=== PATIENT | male | born 1970 | race Caucasian/White ===

== ENCOUNTER 2024-07-29 19:57 | Emergency (ER) | payer BC ==
[2024-07-29 21:17] LABS: Absolute Basophils 0.1 K/uL (0-0.5); Absolute Eosinophils 0.1 K/uL (0-0.5); Absolute Lymphocytes (CBC) 1.5 K/uL (0.7-4.9); Absolute Monocytes 0.7 K/uL (0.1-1.3); Absolute Neutrophil 6.2 K/uL (1.8-8.0); Basophils % 0.8 % (0-1.3); Eosinophils % 0.6 % (0-4.4); Hematocrit 36.2 % (39.6-49.0); Hemoglobin 12.6 g/dL (13.6-17.9); Lymphocytes % 17.2 % (15.3-44.8); MCH 31.6 pg (27.0-35.0); MCHC 34.7 g/dL (32.0-36.0); MCV 91.2 fL (80-100); MPV 8.9 fL (7.6-11.3); Monocytes % 8.1 % (3.3-12.3); Neutrophils % 73.3 % (41.7-73.7); Platelets 263 thou/uL (152-406); RBC Red Blood Cell Count 3.97 M/uL (4.33-5.43); Red Cell Distribution Width 13.1 % (12.1-15.2)
[2024-07-29 21:33] LABS: Albumin 3.3 g/dL (3.4-5.0); Albumin/Globulin Ratio 0.9 (1.1-1.8); Alkaline Phosphatase 53 U/L (45-117); Anion Gap 8.3 mEq/L (5.0-15.0); BUN Blood Urea Nitrogen 14 mg/dL (7-18); Bicarbonate 27 mEq/L (21-32); Bilirubin Total 0.8 mg/dL (0.2-1.0); Globulin 3.7 g/dL (2.3-3.5); Glomerular Filtration Rate 64 ml/min (=/>90); Glucose Level 155 mg/dL (74-106); Lipase 46 U/L (13-75); Potassium 3.3 mEq/L (3.5-5.1); Sodium Level 136 mEq/L (136-145)
[2024-07-29] MEDS ORDERED: ONDANSETRON 4 MG/2 ML VIAL ONE (21:35)
[2024-07-29] MEDS ORDERED: MORPHINE 4 MG/ML SYR ONE (21:36)
[2024-07-29] MEDS ORDERED: NA CHLORIDE 0.9% 1,000 ML ONE (21:36)
[2024-07-29 21:47] LABS: Specific Gravity < 1.005 (1.005-1.030); Sqamous Epithelial None Seen /HPF (None Seen); Urine Bacteria None Seen /HPF (<20); Urine Bilirubin NEGATIVE (Negative); Urine Blood Negative (Negative); Urine Clarity Clear (Clear); Urine Color Colorless (Yellow); Urine Crystals Unidentified Few /HPF (None Seen); Urine Culture Reflex Order NOT NEEDED; Urine Glucose NEGATIVE (Negative); Urine Ketones NEGATIVE (Negative); Urine Microscopic Reflex YN ORDER UMIC; Urine Nitrite NEGATIVE (Negative); Urine Protein NEGATIVE (Negative); Urine RBC <5 /HPF (None Seen); Urine Urobilinogen Normal (Normal); Urine WBC <5 /HPF (<5)
[2024-07-29 21:49] LABS: ALT/SGPT < 14 U/L (16-61); AST/SGOT < 10 U/L (15-37)
--- NOTE | 2024-07-30 00:49 | RAD REPORT ---
EXAM DESCRIPTION: Abdomen Pelvis W Contrast CLINICAL HISTORY: lower abdomen pain COMPARISON: None Available. TECHNIQUE: CT of the abdomen and pelvis performed following IV administration of iodinated contrast . Contrast throughout the bowel. This exam was performed according to our departmental dose-optimization program, which includes automated exposure control, adjustment of the mA and/or kV according to patient size and/or use of iterative reconstruction technique. FINDINGS: Lung Bases: Minimal dependent atelectasis. Bones: No acute osseous abnormality identified. Abdomen: Liver: Multiple large hepatic hemangiomas, the largest in the right hepatic lobe measuring 8.2 cm. Gallbladder: No calcified gallstones. Spleen, Pancreas, and Adrenal Glands: The spleen, pancreas, and adrenal glands are unremarkable. Kidneys: No hydronephrosis or obstructing calculus. Scattered small bilateral renal cysts. No follo w-up imaging for the structures. Vasculature: Aortoiliac atherosclerosis. IVC is unremarkable. The portal vein is patent. The proxim al visceral and renal arteries are patent. Stomach: The stomach and duodenum have normal course. Other: No free intraperitoneal air. Small amount of free fluid. Pelvis: Bladder: Urinary bladder is unremarkable. Bowel: No dilated loops of large or small bowel. Short segment wall thickening with adjacent inflam matory change of the sigmoid colon. Scattered diverticula of the colon. Appendix: Normal appendix. Pelvis: Enlarged prostate. IMPRESSION: 1. Findings compatible with acute uncomplicated diverticulitis of the sigmoid colon. 2. Enlarged prostate. 3. Multiple large hepatic hemangiomas, the largest in the right hepatic lobe measuring 8.2 cm. If p atient is symptomatic related to the structures surgical consultation could be considered. Electronically signed by: Raul Couch DO 07/30/2024 12:45 AM [facility] [id number] Due to temporary technical issues with the PACS/UpOut reporting system, reports are being leidy d by the in-house radiologist without review as a courtesy to ensure prompt reporting the interpreting radiologist is fully responsible for the content of the report. Transcribed Date/Time: 07/30/2024 12:48 AM
--- NOTE | 2024-07-30 01:06 | EDPHYS ---
Physician Documentation [facility] Name: Kin De Souza Age: 53 yrs Sex: Male : 1970 Arrival Date: 07/29/2024 Time: 19:57 Bed 8 Private MD: ED Physician Jeramie Harris HPI: 07/29 20:45 This 53 yrs old Male presents to ER via Ambulatory with complaints of Abdominal Pain. cp 20:45 The patient presents with abdominal pain in the lower abdomen. cp 20:45 Onset: The symptoms/episode began/occurred 2 day(s) ago. cp 20:45 The symptoms do not radiate. Associated signs and symptoms: Pertinent positives: cp constipation, nausea. 20:45 Severity of pain: in the emergency department the pain is unchanged despite home cp interventions. Historical: - Allergies: 20:18 No Known Allergies; bm8 - Home Meds: 20:18 None [Active]; bm8 - PMHx: 20:18 None; bm8 - PSHx: 20:18 facial reconstruction; bm8 - Immunization history:: Adult Immunizations up to date. - Infectious Disease History:: Denies. - Social history:: Smoking status: Patient/guardian denies using tobacco, the patient reports quitting approximately 10 years ago. ROS: 20:50 Constitutional: Negative for body aches, chills, fever, poor PO intake, cp 20:50 Cardiovascular: Negative for chest pain, edema, palpitations, cp 20:50 Respiratory: Negative for cough, shortness of breath, wheezing, 20:50 Abdomen/GI: Positive for abdominal pain, nausea, constipation, of the lower abdomen, 20:50 Eyes: Negative for injury, pain, redness, and discharge, cp 20:50 ENT: Negative for drainage from ear(s), ear pain, sore throat, difficulty swallowing, cp difficulty handling secretions, 20:50 Back: Negative for pain at rest, pain with movement, 20:50 : Negative for urinary symptoms, testicular pain 20:50 Neuro: Negative for altered mental status, dizziness, headache, weakness, 20:50 All other systems are negative, Exam: 20:55 Constitutional: The patient appears in no acute distress, alert, awake, cp non-diaphoretic, non-toxic, well developed, well nourished, uncomfortable, 20:55 Head/Face: Normocephalic, atraumatic. cp 20:55 Eyes: Periorbital structures: appear normal, Conjunctiva: normal, no exudate, no cp injection, Sclera: no appreciated abnormality, Lids and lashes: appear normal, bilaterally, 20:55 ENT: External ear(s): are unremarkable, Nose: is normal, Mouth: Lips: moist, Oral mucosa: moist, Posterior pharynx: Airway: no evidence of obstruction, patent, 20:55 Chest/axilla: Inspection: normal, cp 20:55 Cardiovascular: Rate: normal, Rhythm: regular, 20:55 Respiratory: the patient does not display signs of respiratory distress, Respirations: normal, no use of accessory muscles, no retractions, labored breathing, is not present, Breath sounds: are clear throughout, no decreased breath sounds, no stridor, no wheezing, 20:55 Abdomen/GI: Inspection: abdomen appears normal, Bowel sounds: active, all quadrants, Palpation: soft, in all quadrants, moderate abdominal tenderness, in the suprapubic area and left lower quadrant, rebound tenderness, is not appreciated, voluntary guarding, is elicited in the suprapubic area and left lower quadrant, 20:55 Back: pain, is absent, ROM is normal, 20:55 Neuro: Orientation: to person, place \T\ time. Mentation: is normal, Motor: moves all fours, strength is normal, Sensation: is normal, Gait: is steady, at a normal pace, without difficulty, Vital Signs: 20:17 BP 141 / 63; Pulse 80; Resp 17; Temp 98.5; Pulse Ox 99% ; Weight 63.5 kg; Height 5 ft. bm8 5 in. ; Pain 8/10; 21:30 BP 113 / 72; Pulse 57; Resp 16; Pulse Ox 99% on R/A; jb4 22:30 BP 109 / 65; Pulse 50; Resp 16; Pulse Ox 96% on R/A; jb4 07/30 00:04 BP 97 / 69; Pulse 56; Resp 16; Pulse Ox 96% ; jb4 01:54 BP 105 / 60; Pulse 57; Resp 17; Temp 98.5; Pulse Ox 98% ; Pain 2/10; bm8 07/29 20:17 Body Mass Index 23.30 (63.50 kg, 165.1 cm) bm8 07/29 20:17 Pain Scale: Adult bm8 01:54 Pain Scale: Adult bm8 Steven Coma Score: 01:54 Eye Response: spontaneous(4). Motor Response: obeys commands(6). Verbal Response: bm8 oriented(5). Total: 15. MDM: 07/29 20:20 Medical Screening Exam initiated 21:00 Differential diagnosis: appendicitis, bowel obstruction, diverticulitis, GI Bleed, cp non-specific abd pain, pancreatitis, Pyelonephritis, Testicular Torsion, Ureterolithiasis, urinary tract infection. 07/30 01:05 Data reviewed: vital signs, nurses notes, lab test result(s), radiologic studies, CT cp scan, and as a result, I will discharge patient. 01:05 I considered the following discharge prescriptions or medication management in the emergency department Medications were administered in the Emergency Department. See MAR. Counseling: I had a detailed discussion with the patient and/or guardian regarding the historical points, exam findings, and any diagnostic results supporting the discharge/admit diagnosis, lab results, radiology results, the need for outpatient follow up, a asset protection assistant, to return to the emergency department if symptoms worsen or persist or if there are any questions or concerns that arise at home. Response to treatment: the patient's symptoms have markedly improved after treatment, and as a result, I will discharge patient. Special discussion: CT findings of hepatic hemangiomas and recommended f/u. 07/29 20:38 Order name: CBC with Diff; Complete Time: 21:50 07/29 21:50 Interpretation: Normal except: RBC 3.97; HGB 12.6; HCT 36.2. 07/29 20:38 Order name: CMP; Complete Time: 21:50 07/29 21:51 Interpretation: Normal except: K 3.3; GLUC 155; CRE 1.31; GFR 64; AST < 10; ALT < 14; cp ALB 3.3; GLOB 3.7; A/G 0.9. 07/29 20:38 Order name: Lipase; Complete Time: 21:50 07/29 20:38 Order name: Urinalysis w/ reflexes; Complete Time: 21:50 07/29 20:38 Order name: CT Abd/Pelvis - PO and IV Contrast 07/30 00:54 Interpretation: Report reviewed. cp 07/29 20:38 Order name: IV Saline Lock; Complete Time: 21:33 cp 07/29 20:38 Order name: Labs collected and sent; Complete Time: 21:33 cp Administered Medications: 07/29 21:53 Drug: morphine IVP or IV 4 mg IVP once over 4 mins Route: IVP; Infused Over: 4 mins; jb4 Site: right antecubital; 22:30 Follow up: Response: No adverse reaction; Marked relief of symptoms jb4 21:54 Drug: Ondansetron IVP 4 mg IVP once; over 2 minutes Route: IVP; Site: right antecubital;jb4 22:30 Follow up: Response: No adverse reaction; Marked relief of symptoms jb4 21:54 Drug: NS 0.9% IV 1000 ml IV at 1 bolus Per protocol; to be given as a bolus over 60 jb4 minutes Route: IV; Rate: 1 bolus; Site: right antecubital; 22:54 Follow up: Response: No adverse reaction; IV Status: Completed infusion; IV Intake: jb4 1000ml 07/30 01:50 Drug: metroNIDAZOLE PO 500 mg PO once Route: PO; bm8 01:57 Follow up: Response: No adverse reaction bm8 01:50 Drug: Ciprofloxacin PO 500 mg PO once Route: PO; bm8 01:57 Follow up: Response: No adverse reaction bm8 01:50 Drug: Dicyclomine PO 20 mg PO once Route: PO; bm8 01:57 Follow up: Response: No adverse reaction bm8 Disposition: 06:28 Co-signature as Attending Physician, Jeramie Harris MD I agree with the assessment sp4 and plan of care. I reviewed the patient's care provided by the Advanced Practice Provider and agree with the diagnosis and treatment plan. Disposition Summary: 07/30/24 01:05 Discharge Ordered Notes: Location: Home cp Problem: new cp Symptoms: have improved cp Condition: Stable cp Diagnosis - Diverticulitis of large intestine without perforation or abscess without bleeding cp - Hemangioma of intra-abdominal structures - liver cp Followup: cp - With: Chau Schmidt MD - When: 1 week - Reason: Recheck today's complaints Discharge Instructions: - Discharge Summary Sheet cp - High-Fiber Eating Plan cp - Diverticulitis cp - Virtual Colonoscopy cp Forms: - Medication Reconciliation Form cp - Antibiotic Education cp - Prescription Opioid Use cp - Patient Portal Instructions cp - Leadership Thank You Letter cp Prescriptions: - Zofran 4 mg Oral Tablet - take 1 tablet ORAL route every 12 hours As needed; 20 tablet; Refills: 0, cp Product Selection Permitted - Cipro 500 mg Oral tablet - take 1 tablet ORAL route every 12 hours for 10 days; 20 tablet; Refills: 0, cp Product Selection Permitted - Metronidazole 500 mg Oral Tablet - take 1 tablet ORAL route every 8 hours; 30 tablet; Refills: 0, Product cp Selection Permitted - dicyclomine 20 mg Oral tablet - take 1 tablet ORAL route 4 times per day; 30 tablet; Refills: 0, Product cp Selection Permitted Signatures: Dispatcher [employer] EDMS Tarik Guzman PA PA cp Alvaro Meza, RN RN jb4 Jeramie Harris MD MD sp4 Helder Marcano RN RN bm8 Corrections: (The following items were deleted from the chart) 07/29 20:38 20:38 CBC+H.LAB.BRZ ordered. EDMS EDMS 20:38 20:38 COMPREHENSIVE METABOLIC PANEL+C.LAB.BRZ ordered. EDMS EDMS 20:38 20:38 LIPASE+C.LAB.BRZ ordered. EDMS EDMS 20:38 20:38 Urinalysis+U.LAB.BRZ ordered. EDMS EDMS 20:38 20:38 Abdomen Pelvis W Con+CT.RAD.BRZ ordered. EDMS EDMS
--- NOTE | 2024-07-30 01:06 | ER ---
Nurse's Notes [facility] Name: Kin De Souza Age: 53 yrs Sex: Male : 1970 Arrival Date: 07/29/2024 Time: 19:57 Bed 8 Private MD: Diagnosis: Diverticulitis of large intestine without perforation or abscess without bleeding;Hemangioma of intra-abdominal structures-liver Presentation: 07/29 20:17 Chief complaint: Patient states: severe abd pain that began Friday with black stool bm8 and difficulty urinating. Coronavirus screen: At this time, the client does not indicate any symptoms associated with coronavirus-19. Ebola Screen: Patient negative for fever greater than or equal to 101.5 degrees Fahrenheit, and additional compatible Ebola Virus Disease symptoms Patient denies exposure to infectious person. Patient denies travel to an Ebola-affected area in the 21 days before illness onset. No symptoms or risks identified at this time. Initial Sepsis Screen: Does the patient meet any 2 criteria? No. Patient's initial sepsis screen is negative. Does the patient have a suspected source of infection? No. Patient's initial sepsis screen is negative. Risk Assessment: Do you want to hurt yourself or someone else? Patient reports no desire to harm self or others. Onset of symptoms was July 26, 2024. 20:17 Method Of Arrival: Ambulatory bm8 20:17 Acuity: ELENA 3 bm8 Triage Assessment: 20:18 General: Appears in no apparent distress. comfortable, Behavior is calm, cooperative, bm8 appropriate for age. Pain: Complains of pain in right lower quadrant and left lower quadrant Pain currently is 8 out of 10 on a pain scale. EENT: No deficits noted. Neuro: No deficits noted. Level of Consciousness is awake, alert, obeys commands, Oriented to person, place, time, situation, Appropriate for age. GI: Reports lower abdominal pain, Patient currently denies nausea, vomiting. Historical: - Allergies: 20:18 No Known Allergies; bm8 - Home Meds: 20:18 None [Active]; bm8 - PMHx: 20:18 None; bm8 - PSHx: 20:18 facial reconstruction; bm8 - Immunization history:: Adult Immunizations up to date. - Infectious Disease History:: Denies. - Social history:: Smoking status: Patient/guardian denies using tobacco, the patient reports quitting approximately 10 years ago. Screenin/17 01:54 [facility] ED Fall Risk Assessment (Adult) History of falling in the last 3 months, bm8 including since admission No falls in past 3 months (0 pts) Confusion or Disorientation No (0 pts) Intoxicated or Sedated No (0 pts) Impaired Gait No (0 pts) Mobility Assist Device Used No (0 pt) Altered Elimination No (0 pt) Score/Fall Risk Level 0 - 2 = Low Risk Oriented to surroundings, Maintained a safe environment, Educated pt \T\ family on fall prevention, incl call for assistance when getting out of bed, Assessed \T\ reinforced patient's understanding of fall precautions, Hourly rounding (assess needs \T\ fall precautionary measures) done, Used ambulatory aids as needed (educated on \T\ assisted with), Used gait belt as appropriate. Abuse screen: Denies threats or abuse. Nutritional screening: No deficits noted. Tuberculosis screening: No symptoms or risk factors identified. Assessment: 07/29 20:15 General: Appears in no apparent distress. comfortable, Behavior is calm, cooperative, jb4 appropriate for age. Pain: Complains of pain in right lower quadrant and left lower quadrant Pain does not radiate. Pain currently is 9 out of 10 on a pain scale. Neuro: Level of Consciousness is awake, alert, obeys commands, Oriented to person, place, time, situation. Cardiovascular: Patient's skin is warm and dry. Respiratory: Airway is patent Respiratory effort is even, unlabored, Respiratory pattern is regular, symmetrical. GI: Abdomen is distended, Abd is soft X 4 quads Abdomen is tender to palpation X 4 quads. Reports lower abdominal pain, nausea. Derm: Skin is intact, Skin is pink, warm \T\ dry. Musculoskeletal: Circulation, motion, and sensation intact. Range of motion: intact in all extremities. 21:15 Reassessment: Patient appears in no apparent distress at this time. Patient and/or jb4 family updated on plan of care and expected duration. Pain level reassessed. Patient is alert, oriented x 3, equal unlabored respirations, skin warm/dry/pink. 22:58 Reassessment: Patient appears in no apparent distress at this time. Patient and/or jb4 family updated on plan of care and expected duration. Pain level reassessed. Patient is alert, oriented x 3, equal unlabored respirations, skin warm/dry/pink. 07/30 00:04 Reassessment: Patient appears in no apparent distress at this time. Patient and/or jb4 family updated on plan of care and expected duration. Pain level reassessed. Patient is alert, oriented x 3, equal unlabored respirations, skin warm/dry/pink. 01:54 Reassessment: Patient appears in no apparent distress at this time. Patient and/or bm8 family updated on plan of care and expected duration. Pain level reassessed. Patient is alert, oriented x 3, equal unlabored respirations, skin warm/dry/pink. Patient denies pain at this time. Patient states feeling better. Patient states symptoms have improved. GI: Bowel sounds present X 4 quads. Vital Signs: 07/29 20:17 BP 141 / 63; Pulse 80; Resp 17; Temp 98.5; Pulse Ox 99% ; Weight 63.5 kg; Height 5 ft. bm8 5 in. ; Pain 8/10; 21:30 BP 113 / 72; Pulse 57; Resp 16; Pulse Ox 99% on R/A; jb4 22:30 BP 109 / 65; Pulse 50; Resp 16; Pulse Ox 96% on R/A; jb4 07/30 00:04 BP 97 / 69; Pulse 56; Resp 16; Pulse Ox 96% ; jb4 01:54 BP 105 / 60; Pulse 57; Resp 17; Temp 98.5; Pulse Ox 98% ; Pain 2/10; bm8 07/29 20:17 Body Mass Index 23.30 (63.50 kg, 165.1 cm) 8 07/29 20:17 Pain Scale: Adult bm8 01:54 Pain Scale: Adult bm8 Steven Coma Score: 01:54 Eye Response: spontaneous(4). Motor Response: obeys commands(6). Verbal Response: bm8 oriented(5). Total: 15. ED Course: 07/29 20:02 Patient arrived in ED. ra3 20:05 Tarik Guzman PA is PHCP. cp 20:05 Jeramie Harris MD is Attending Physician. cp 20:18 Triage completed. bm8 20:18 Arm band placed on right wrist. bm8 20:58 Inserted saline lock: 20 gauge in right antecubital area, using aseptic technique. sa1 Blood collected. Flushed with 10 mL NS. 20:58 Initial lab(s) drawn, by me, sent to lab. sa1 21:27 Warm blanket given. sa1 21:35 Urine collected: clean catch specimen, clear. sa1 22:44 Alvaro Meza, RN is Primary Nurse. jb4 23:31 CT Abd/Pelvis - PO and IV Contrast In Process Unspecified. EDMS 07/30 01:04 Chau Schmidt MD is Referral Physician. cp 01:54 Patient has correct armband on for positive identification. Bed in low position. Call bm8 light in reach. Side rails up X 1. Provided Education on: post er care. Client placed on continuous cardiac and pulse oximetry monitoring. NIBP monitoring applied. Pulse ox on. NIBP on. 01:54 No provider procedures requiring assistance completed. IV discontinued, intact, bm8 bleeding controlled, No redness/swelling at site. Pressure dressing applied. Administered Medications: 07/29 21:53 Drug: morphine IVP or IV 4 mg IVP once over 4 mins Route: IVP; Infused Over: 4 mins; jb4 Site: right antecubital; 22:30 Follow up: Response: No adverse reaction; Marked relief of symptoms jb4 21:54 Drug: Ondansetron IVP 4 mg IVP once; over 2 minutes Route: IVP; Site: right antecubital;jb4 22:30 Follow up: Response: No adverse reaction; Marked relief of symptoms 4 21:54 Drug: NS 0.9% IV 1000 ml IV at 1 bolus Per protocol; to be given as a bolus over 60 jb4 minutes Route: IV; Rate: 1 bolus; Site: right antecubital; 22:54 Follow up: Response: No adverse reaction; IV Status: Completed infusion; IV Intake: jb4 1000ml 07/30 01:50 Drug: metroNIDAZOLE PO 500 mg PO once Route: PO; bm8 01:57 Follow up: Response: No adverse reaction bm8 01:50 Drug: Ciprofloxacin PO 500 mg PO once Route: PO; bm8 01:57 Follow up: Response: No adverse reaction bm8 01:50 Drug: Dicyclomine PO 20 mg PO once Route: PO; bm8 01:57 Follow up: Response: No adverse reaction bm8 Medication: 01:54 VIS not applicable for this client. bm8 Intake: 07/29 22:54 IV: 1000ml; Total: 1000ml. jb4 Outcome: 07/30 01:05 Discharge ordered by . chelly 01:54 Discharged to home ambulatory, bm8 01:54 Condition: stable 01:54 Discharge instructions given to patient, Instructed on discharge instructions, follow up and referral plans. no drinking with medication, no driving heavy equipment, medication usage, Demonstrated understanding of instructions, follow-up care, medications, Prescriptions given X 4, 01:57 Patient left the ED. bm8 Signatures: Dispatcher [employer] EDMS Tarik Guzman PA PA cp Bryson, James, RN RN jb4 Ayla Amaro ra3 Helder Marcano, RN RN bm8 Sultan Jayden sa1 Corrections: (The following items were deleted from the chart) 01:56 01:54 Patient did not have IV access during this emergency room visit. bm8 bm8
[2024-07-30] MEDS ORDERED: metroNIDAZOLE 500 MG TABLET ONE (01:44)
[2024-07-30] MEDS ORDERED: DICYCLOMINE HCL 10 MG CAP ONE (01:44)
[2024-07-30] MEDS ORDERED: CIPROFLOXACIN HCL 500 MG TAB ONE (01:44)
[2024-07-30 03:28] VITALS: BP 105/60; TEMP 98.5; O2SAT 98
== END 2024-07-30 01:57 | disposition home or self-care (01) ==
LOC: ER 19:57
DX: K57.32 Diverticulitis of large intestine without perforation or abscess without bleeding (principal); D18.09 Hemangioma of other sites
CPT/HCPCS: 96361; 85025; 81001; 36415; 83690; 80053; 74177; 96375; 96374; 99284; Q9967; J2405; J7030

== ENCOUNTER 2024-09-12 10:10 | Inpatient (IN) | payer BC ==
[2024-09-12] MEDS ORDERED: ONDANSETRON 4 MG/2 ML VIAL ONE ×2 (10:33→16:34)
[2024-09-12] MEDS ORDERED: FENTANYL CITR 100 MCG/2 ML ONE ×2 (10:33→14:17)
[2024-09-12 10:58] LABS: Absolute Lymphocytes (CBC) 0.6 K/uL (0.7-4.9); Absolute Monocytes 0.5 K/uL (0.1-1.3); Absolute Neutrophil 12.9 K/uL (1.8-8.0); Basophils % 0.2 % (0-1.3); Hematocrit 39.7 % (39.6-49.0); Hemoglobin 13.6 g/dL (13.6-17.9); Lymphocytes % 4.4 % (15.3-44.8); MCH 31.7 pg (27.0-35.0); MCHC 34.4 g/dL (32.0-36.0); MCV 92.3 fL (80-100); MPV 8.7 fL (7.6-11.3); Monocytes % 3.5 % (3.3-12.3); Neutrophils % 91.9 % (41.7-73.7); Platelets 192 thou/uL (152-406); Red Cell Distribution Width 13.9 % (12.1-15.2)
[2024-09-12 11:27] LABS: Albumin 3.6 g/dL (3.4-5.0); Anion Gap 7.2 mEq/L (5.0-15.0); Bilirubin Direct 0.2 mg/dL (0-0.2); Bilirubin Indirect, Calculated 0.7 mg/dL (0.2-0.8); Bilirubin Total 0.9 mg/dL (0.2-1.0); Globulin 3.7 g/dL (2.3-3.5); Magnesium 2.1 mg/dL (1.6-2.4); Potassium 4.2 mEq/L (3.5-5.1); Protein, Total 7.3 g/dL (6.4-8.2); Troponin High Sensitivity 4.7 pg/mL (<58.9)
[2024-09-12 11:32] LABS: Blood Morphology Comment NOT SEEN (NOT SEEN); Platelet Estimate ADEQ; Platelets Clumped FEW; White Blood Cell Scan OK (OK)
[2024-09-12] MEDS ORDERED: NA CHLORIDE 0.9% 1,000 ML ONE (11:55)
[2024-09-12 12:09] LABS: PT Prothrombin Time 12.7 SECONDS (10.0-13.0); PTT, Activated Partial Thromb 26.9 SECONDS (24.3-36.9); Protime INR 1.12
--- NOTE | 2024-09-12 12:50 | RAD REPORT ---
EXAMINATION: CT ABDOMEN AND PELVIS WITH CONTRAST CLINICAL INDICATION: ABD PAIN TECHNIQUE: CT abdomen and pelvis was performed, after the administration of IV contrast, [facility]. Axial, sagittal and coronal reconstructions were obtained. One or more of the following dose reduction techniques were used: Automated exposure control, adjustment of the mA and k V according to patient size, and iterative reconstruction. Unless otherwise specified, incidental findings do not require dedicated imaging follow-up. COMPARISON: 07/29/2024 FINDINGS: LOWER CHEST: The visualized lung bases are clear. LIVER: Multiple hepatic lesions are present, largest in the right lobe measuring 7 cm, likely hemangi omata. Grossly unremarkable gallbladder. SPLEEN: Normal size. No focal lesion. PANCREAS: No mass, ductal dilation, or cynthia-pancreatic fluid. ADRENALS: Normal; no mass. KIDNEYS: Normal size and contour. No hydronephrosis. Punctate calculus inferior right kidney. GASTROINTESTINAL TRACT: Mild pneumoperitoneum is present. No bowel obstruction or free fluid. There i s mild diverticulosis coli of the sigmoid colon without diverticulitis. APPENDIX: Normal appendix. LYMPH NODES: No lymphadenopathy. MUSCULOSKELETAL: No acute or suspicious osseous abnormality. IMPRESSION: There is pneumoperitoneum present, new since prior imaging. This is presumed related to perforated vi scus. The findings were communicated with Dr. Salinas at 09/12/2024 12:48 PM by telephone.
[2024-09-12] MEDS ORDERED: HYDROMORPHONE HCL 1 MG/ML INJ ONE (12:54)
[2024-09-12] MEDS ORDERED: NA CHLORIDE 0.9% 100 ML ONE (13:14)
[2024-09-12] MEDS ORDERED: PIPERACIL/TAZO 3.375 GM VIAL IV ONE (13:14)
--- NOTE | 2024-09-12 13:26 | ER ---
Nurse's Notes [facility] Name: Kin De Souza Age: 53 yrs Sex: Male : 1970 Arrival Date: 09/12/2024 Time: 10:10 Bed 14 Private MD: Diagnosis: Perforated diverticula with pneumoperitoneum Presentation: 09/12 10:24 Chief complaint: Patient states: RIGHT SHOULDER PAIN, LOWER ABD PAIN AND DIARRHEA SINCE bp FRI NIGHT. Coronavirus screen: At this time, the client does not indicate any symptoms associated with coronavirus-19. Ebola Screen: No symptoms or risks identified at this time. Initial Sepsis Screen: Does the patient meet any 2 criteria? No. Patient's initial sepsis screen is negative. Does the patient have a suspected source of infection? No. Patient's initial sepsis screen is negative. Risk Assessment: Do you want to hurt yourself or someone else? Patient reports no desire to harm self or others. Onset of symptoms is unknown. 10:24 Method Of Arrival: Ambulatory bp 10:24 Acuity: ELENA 3 bp Triage Assessment: 10:26 General: Appears in no apparent distress. uncomfortable, Behavior is cooperative, bp appropriate for age, anxious. Pain: Complains of pain in abdomen. EENT: No deficits noted. Neuro: No deficits noted. Cardiovascular: No deficits noted. Respiratory: No deficits noted. GI: Reports lower abdominal pain, diarrhea. : No signs and/or symptoms were reported regarding the genitourinary system. Derm: No deficits noted. Musculoskeletal: No deficits noted. Historical: - Allergies: 10:26 No Known Allergies; bp - PMHx: 10:26 Diverticulitis; bp - PSHx: 10:26 facial reconstruction; bp - Immunization history:: Adult Immunizations up to date. - Infectious Disease History:: Denies. - Social history:: Smoking status: Patient denies any tobacco usage or history of. Screenin:27 [facility] ED Fall Risk Assessment (Adult) History of falling in the last 3 months, bp including since admission No falls in past 3 months (0 pts) Confusion or Disorientation No (0 pts) Intoxicated or Sedated No (0 pts) Impaired Gait No (0 pts) Mobility Assist Device Used No (0 pt) Altered Elimination No (0 pt) Score/Fall Risk Level 0 - 2 = Low Risk Oriented to surroundings. Abuse screen: Denies threats or abuse. Denies injuries from another. Nutritional screening: No deficits noted. Tuberculosis screening: No symptoms or risk factors identified. Assessment: 10:30 General: Appears in no apparent distress. uncomfortable, Behavior is calm, cooperative. kj2 Pain: Complains of pain in right arm and anterior aspect of right shoulder and abdomen Pain currently is 9 out of 10 on a pain scale. Neuro: Level of Consciousness is awake, alert, obeys commands, Oriented to person, place, time, situation. Cardiovascular: Patient's skin is warm and dry. Respiratory: Airway is patent Respiratory effort is even, unlabored. GI: Abdomen is flat, Bowel sounds present X 4 quads. Abdomen is tender to palpation. : No signs and/or symptoms were reported regarding the genitourinary system. 11:30 Reassessment: Patient appears in no apparent distress at this time. Patient and/or kj2 family updated on plan of care and expected duration. Pain level reassessed. Patient is alert, oriented x 3, equal unlabored respirations, skin warm/dry/pink. 12:30 Reassessment: Patient appears in no apparent distress at this time. Patient and/or kj2 family updated on plan of care and expected duration. Pain level reassessed. Patient is alert, oriented x 3, equal unlabored respirations, skin warm/dry/pink. 14:00 Reassessment: pt left to OR with OR nurse via wheelchair. kj2 Vital Signs: 10:24 BP 113 / 82; Pulse 91; Resp 16; Temp 98; Pulse Ox 96% ; bp 11:30 BP 111 / 64; Pulse 82; Resp 20; Temp 98; Pulse Ox 95% on R/A; kj2 12:30 BP 114 / 68; Pulse 84; Resp 20; Pulse Ox 100% ; kj2 ED Course: 10:11 Patient arrived in ED. am2 10:11 [facility]ervat Wallace [facility]. sb4 10:11 Madhav Salinas MD is Attending Physician. sb4 10:25 Triage completed. bp 10:26 Arm band placed on. bp 10:27 Patient has correct armband on for positive identification. bp 10:30 Lucy Kenney RN is Primary Nurse. kj2 10:40 Inserted saline lock: 20 gauge in left antecubital area, using aseptic technique. Blood kj2 collected. Flushed with 10 mL NS. 11:14 EKG done, by ED staff, reviewed by Mervat Wallace PA-C. em1 11:51 Blood Culture Adult (2) Sent. kj2 11:51 Lactate w/ 2H reflex if indic. Sent. kj2 11:51 Protime (+inr) Sent. kj2 11:51 Ptt, Activated Sent. kj2 12:38 CT Abd/Pelvis - IV Contrast Only In Process Unspecified. EDMS 13:19 Jarek Ornelas PA is Hospitalizing Provider. sb4 14:10 No provider procedures requiring assistance completed. Patient admitted, IV remains in kj2 place. 14:11 Provided Education on: need for admit. kj2 Administered Medications: 10:43 Drug: fentaNYL (PF) IVP 50 mcg IVP once Route: IVP; Site: left antecubital; kj2 11:17 Follow up: Response: No adverse reaction kj2 10:47 Drug: Ondansetron IVP 4 mg IVP once; over 2 minutes Route: IVP; Site: left antecubital; kj2 11:17 Follow up: Response: No adverse reaction kj2 12:04 Drug: NS 0.9% IV 1000 ml IV at 1000 ml once; to be given as a bolus over 60 minutes kj2 Route: IV; Rate: 1000 ml; Site: left antecubital; 12:58 Drug: HYDROmorphone IVP 1 mg IVP once Route: IVP; Site: left antecubital; kj2 13:19 Drug: Piperacillin-Tazobactam IVPB 3.375 grams IVPB once over 60 mins; (mix in NS 100 kj2 mL) Route: IVPB; Infused Over: 60 mins; Site: left antecubital; Medication: 10:50 VIS not applicable for this client. kj2 Outcome: 13:25 Decision to Hospitalize by Provider. sb4 14:11 Admitted to OR accompanied by nurse, via wheelchair, kj2 14:11 Condition: stable 14:11 Instructed on the need for admit, 14:11 Patient left the ED. kj2 Signatures: Dispatcher [employer] EDMS Joshau Morillo em1 Eliza Graham am2 Juan Antonio Law, RN RN Mervat Colon PA-C PA-C sbLucy Duenas, RN RN kj2
--- NOTE | 2024-09-12 13:26 | EDPHYS ---
Physician Documentation [facility] Name: Kin De Souza Age: 53 yrs Sex: Male : 1970 Arrival Date: 09/12/2024 Time: 10:10 Bed 14 Private MD: ED Physician Madhav Salinas HPI: 09/12 10:32 This 53 yrs old Male presents to ER via Ambulatory with complaints of Abdominal Pain, sb4 Diarrhea, Arm Pain. 10:33 Patient reports abdominal pain that began 2 days ago with associated diarrhea. Reports sb4 his symptoms are similar to when he was diagnosed with diverticulitis. Denies any blood in his stool. Denies any vomiting . denies any fever. Additionally, he reports pain in his right shoulder/collarbone region. Denies any injury to the area. Historical: - Allergies: 10:26 No Known Allergies; bp - PMHx: 10:26 Diverticulitis; bp - PSHx: 10:26 facial reconstruction; bp - Immunization history:: Adult Immunizations up to date. - Infectious Disease History:: Denies. - Social history:: Smoking status: Patient denies any tobacco usage or history of. ROS: 10:35 Constitutional: Negative for fever, chills, and weight loss, sb4 10:35 Abdomen/GI: Positive for abdominal pain, diarrhea, 10:35 MS/extremity: Positive for pain, of the anterior aspect of right shoulder, 10:35 All other systems are negative, Exam: 10:35 Head/Face: Normocephalic, atraumatic. Eyes: Extra-ocular motions intact. Periorbital sb4 areas with no swelling, redness, or edema. ENT: Mucous membranes moist. Cardiovascular: Regular rate and rhythm with a normal S1 and S2. Respiratory: No increased work of breathing, no retractions or nasal flaring. Abdomen/GI: Soft, non-tender, no distension. Skin: Warm, dry with normal turgor. Normal color with no rashes, no lesions, and no evidence of cellulitis. 10:35 Constitutional: The patient appears alert, awake, in obvious pain, uncomfortable, Vital Signs: 10:24 BP 113 / 82; Pulse 91; Resp 16; Temp 98; Pulse Ox 96% ; bp 11:30 BP 111 / 64; Pulse 82; Resp 20; Temp 98; Pulse Ox 95% on R/A; kj2 12:30 BP 114 / 68; Pulse 84; Resp 20; Pulse Ox 100% ; kj2 MDM: 10:12 Medical Screening Exam initiated sb4 14:05 Data reviewed: vital signs, nurses notes, lab test result(s), EKG, radiologic studies, sb4 I have discussed the patient's presentation/case with the attending Emergency Department Physician; and as a result, I will admit patient. Consideration of Admission/Observation Patient was admitted/placed on observation. Management of patient was discussed with the following: Case Finisher: Dr. Andersen, will take to OR today . Counseling: I had a detailed discussion with the patient and/or guardian regarding the historical points, exam findings, and any diagnostic results supporting the discharge/admit diagnosis, lab results, radiology results, the need for further work-up and treatment in the hospital. 09/12 10:27 Order name: Basic Metabolic Panel; Complete Time: 11:27 [facility] 09/12 10:27 Order name: CBC with Diff; Complete Time: 11:32 [facility] 09/12 10:27 Order name: LFT's; Complete Time: 11:27 [facility] 09/12 10:27 Order name: Magnesium; Complete Time: 11:27 4 09/12 10:27 Order name: Troponin HS; Complete Time: 11:27 4 09/12 10:27 Order name: Lipase; Complete Time: 11:27 [facility] 09/12 11:28 Order name: Blood Culture Adult (2) [facility] 09/12 11:28 Order name: Lactate w/ 2H reflex if indic.; Complete Time: 12:17 [facility] 09/12 11:28 Order name: Protime (+inr); Complete Time: 12:15 [facility] 09/12 11:28 Order name: Ptt, Activated; Complete Time: 12:15 [facility] 09/12 11:32 Order name: CBC Smear Scan; Complete Time: 11:32 [facility] 09/12 13:35 Order name: Comprehensive Metabolic Panel [facility] 09/12 13:35 Order name: Comprehensive Metabolic Panel [facility] 09/12 13:35 Order name: Comprehensive Metabolic Panel [facility] 09/12 13:35 Order name: Comprehensive Metabolic Panel [facility] 09/12 13:35 Order name: Comprehensive Metabolic Panel [facility] 09/12 13:35 Order name: Comprehensive Metabolic Panel [facility] 13:35 Order name: Comprehensive Metabolic Panel [facility] 09/12 13:36 Order name: Comprehensive Metabolic Panel [facility] 09/12 13:36 Order name: Magnesium EDMS / 13:36 Order name: Magnesium ED[facility] 09/12 13:36 Order name: Magnesium [facility] 09/12 13:36 Order name: Magnesium ED[facility] 09/12 13:36 Order name: Magnesium EDMS 09/12 13:36 Order name: Magnesium EDMS 09/12 13:36 Order name: Magnesium EDMS 09/12 13:37 Order name: CBC with Automated Diff EDMS / 13:37 Order name: CBC with Automated Diff EDMS 09/12 13:37 Order name: CBC with Automated Diff ED[facility] 09/12 13:37 Order name: CBC with Automated Diff ED[facility] 09/12 13:37 Order name: CBC with Automated Diff EDMS / 13:37 Order name: CBC with Automated Diff EDMS 09/12 13:37 Order name: CBC with Automated Diff EDMS / 13:37 Order name: CBC with Automated Diff EDMS / 13:37 Order name: Magnesium EDMS 09/12 13:37 Order name: Phosphorus EDMS / 13:37 Order name: Phosphorus EDMS / 13:37 Order name: Phosphorus EDMS / 13:37 Order name: Phosphorus EDMS / 13:37 Order name: Phosphorus EDMS / 13:37 Order name: Phosphorus EDMS / 13:37 Order name: Phosphorus EDMS / 13:37 Order name: Phosphorus EDMS / 10:27 Order name: CT Abd/Pelvis - IV Contrast Only; Complete Time: 12:54 sb4 09/12 10:27 Order name: EKG; Complete Time: 10:28 sb4 09/12 10:27 Order name: Cardiac monitoring; Complete Time: 11:18 sb4 09/12 10:27 Order name: EKG - Nurse/Tech; Complete Time: 11:14 sb4 09/12 10:27 Order name: IV Saline Lock; Complete Time: 11:17 sb4 09/12 10:27 Order name: Labs collected and sent; Complete Time: 10:47 sb4 09/12 10:27 Order name: O2 Per Protocol; Complete Time: 11:17 sb4 09/12 10:27 Order name: O2 Sat Monitoring; Complete Time: 11:18 sb4 09/12 13:28 Order name: NPO sb4 EC:13 Rate is 72 beats/min. Rhythm is regular, Normal Sinus Rhythm. FL interval is normal at sb4 130 msec. QRS interval is normal at 96 msec. QT interval is normal at 378 msec. No Q waves. T waves are Normal. No ST changes noted. Clinical impression: Normal ECG. Interpreted by me. Reviewed by me. Administered Medications: 10:43 Drug: fentaNYL (PF) IVP 50 mcg IVP once Route: IVP; Site: left antecubital; kj2 11:17 Follow up: Response: No adverse reaction kj2 10:47 Drug: Ondansetron IVP 4 mg IVP once; over 2 minutes Route: IVP; Site: left antecubital; kj2 11:17 Follow up: Response: No adverse reaction kj2 12:04 Drug: NS 0.9% IV 1000 ml IV at 1000 ml once; to be given as a bolus over 60 minutes kj2 Route: IV; Rate: 1000 ml; Site: left antecubital; 12:58 Drug: HYDROmorphone IVP 1 mg IVP once Route: IVP; Site: left antecubital; kj2 13:19 Drug: Piperacillin-Tazobactam IVPB 3.375 grams IVPB once over 60 mins; (mix in NS 100 kj2 mL) Route: IVPB; Infused Over: 60 mins; Site: left antecubital; Disposition: 17:36 Co-signature as Attending Physician, Madhav Salinas MD I reviewed the patient's care rt provided by the Advanced Practice Provider and agree with the diagnosis and treatment plan. Disposition Summary: 09/12/24 13:25 Hospitalization Ordered Notes: Hospitalization Status: Inpatient Admission sb4 Provider: Jarek Ornelas Location: Intensive Care Unit sb4 Condition: Serious sb4 Problem: new sb4 Symptoms: are unchanged sb4 Bed/Room Type: Standard sb4 Room Assignment: 2-(09/12/24 13:35) sp Diagnosis - Perforated diverticula with pneumoperitoneum sb4 Forms: - Medication Reconciliation Form sb4 - SBAR form sb4 - Leadership Thank You Letter sb4 Critical care time excluding procedures: 14:06 Critical care time: Bedside Care: 15 minutes, Consultation: 20 minutes. Total time: 35 sb4 minutes Signatures: Dispatcher [employer] EDMS Steffanie Rich Brian, RN RN Mervat Colon PA-C PA-C sb4 Madhav Salinas MD MD rt Lucy Kenney RN RN kj2 Corrections: (The following items were deleted from the chart) 13:35 13:25 sb4 sp
[2024-09-12] MEDS ORDERED: ONDANSETRON 4 MG/2 ML VIAL IV PRN (13:34)
--- NOTE | 2024-09-12 13:50 | P.PN ---
Subjective Date of Service: 09/12/24 Subjective: Presented with 2 days of lower abdominal pain and diarrhea. No chest pain or shortness of breath. No nausea or vomiting. No obvious bleeding. Looks uncomfortable in the chair. Objective: General appearance: Alert and comfortable CVS: Normal S1 and S2 Lungs: Clear to auscultation bilaterally Abdomen: Soft, bowel sounds present, tenderness all over the lower abdomen, more in LLQ Extremities: No lower extremity edema 53 yo with bowel perforation, prob perforated divertilum, NPO, IV ABX,surgery on board, to OR soon. Physical Examination - Studies Laboratory Data (last 24 hrs) 09/12/24 09/12/24 09/12/24 11:45 10:40 10:40 WBC 14.00 H Hgb 13.6 Hct 39.7 Plt Count 192 PT 12.7 H INR 1.12 APTT 26.9 Sodium 136 Potassium 4.2 BUN 22 H Creatinine 1.24 Glucose 104 Magnesium 2.1 Total Bilirubin 0.9 AST 13 L ALT 20 Alkaline Phosphatase 58 Lipase 26
[2024-09-12] MEDS ORDERED: LIDOCAINE 2% MPF 5 ML VIAL ONE (14:16)
[2024-09-12] MEDS ORDERED: ROCURONIUM 50 MG/5 ML VIAL IV ONE ×2 (14:16→15:25)
[2024-09-12] MEDS ORDERED: propofoL 200 MG/20 ML VIAL IV ONE (14:17)
[2024-09-12] MEDS ORDERED: MIDAZOLAM HCL 2 MG/2 ML INJ ONE (14:17)
--- NOTE | 2024-09-12 14:22 | P.HP ---
Certification for Inpatient Patient admitted to: Inpatient With expected LOS: >2 Midnights Patient will require the following post-hospital care: None Practitioner: I am a practitioner with admitting privileges, knowledge of patient current condition, hospital course, and medical plan of care. Services: Services provided to patient in accordance with Admission requirements found in Title 42 Section 412.3 of the Code of Federal Regulations Patient History Date of Service: 09/12/24 Reason for admission: Pneumoperitoneum History of Present Illness: 53-year-old male with history of diverticulitis, BPH presents the emergency department with chief complaint of severe abdominal pain. He reports that most recently his symptoms began on 09/10/2024 but he has been dealing with intermittent episodes of diverticulitis since June of last year. He was evaluated in the emergency department his white blood cell count was 14, CT of the abdomen pelvis showed pneumoperitoneum presumed related to perforated viscus. Surgery was contacted and patient is to be brought to the OR now for emergent surgery - Past Medical/Surgical History -: diverticulitis -: BPH -: None Psychosocial/ Personal History: Lives at home with family - Social History Alcohol use: No CD- Drugs: No Caffeine use: Yes Place of Residence: Home Review of Systems 10-point ROS is otherwise unremarkable Gastrointestinal: Nausea, Abdominal Pain Physical Examination - Vital Signs Temperature: 98 F Blood Pressure: 111/64 Pulse: 82 Respirations: 20 - Physical Exam General: Alert, In no apparent distress, Oriented x3 HEENT: Atraumatic, PERRLA, EOMI Neck: Supple, 2+ carotid pulse no bruit Respiratory: Clear to auscultation bilaterally, Normal air movement Cardiovascular: Regular rate/rhythm, Normal S1 S2 Gastrointestinal: Normal bowel sounds, Tenderness (Moderate to severe) Musculoskeletal: No tenderness Integumentary: No rashes Neurological: Normal speech, Normal strength at 5/5 x4 extr, Normal affect - Studies Laboratory Data (last 24 hrs) 09/12/24 09/12/24 09/12/24 11:45 10:40 10:40 WBC 14.00 H Hgb 13.6 Hct 39.7 Plt Count 192 PT 12.7 H INR 1.12 APTT 26.9 Sodium 136 Potassium 4.2 BUN 22 H Creatinine 1.24 Glucose 104 Magnesium 2.1 Total Bilirubin 0.9 AST 13 L ALT 20 Alkaline Phosphatase 58 Lipase 26 Assessment and Plan - Plan Assessment: Pneumoperitoneum-suspected perforated diverticula/history of diverticulitis BPH Plan: Pneumoperitoneum-suspected perforated diverticula/history of diverticulitis Surgery emergently consulted, saw patient in ER Patient going to the OR now, will go to ICU after Continue broad-spectrum antibioticsZosyn As needed pain medications and antiemetics May need ostomy Serial abdominal exams, ICU level of care for now BPH Resume Flomax when tolerating p.o. DVT PPX: SCD Code status: Full Discharge Plan: Home Plan to discharge in: Greater than 2 days - Advance Directives Does patient have a Living Will: No Does patient have a Durable POA for Healthcare: No - Code Status/Comfort Care Code Status Assessed: Yes (Full) Critical Care: No Time Spent Managing Pts Care (In Minutes): 65
[2024-09-12] MEDS: NA CHLORIDE 0.9% 1,000 ML IV SCH (14:48)
[2024-09-12] MEDS: Ringers Lactate 1,000 ML IV ONE ×2 (15:50→19:16)
--- NOTE | 2024-09-12 16:56 | P.OP ---
Preoperative diagnosis: Perforated Viscus Postoperative diagnosis: Perforated Rectosigmoid Colon Primary procedure: Exploratory Laparotomy Secondary procedure: Intestinal Diversion / Colostomy Creation Anesthesia: GETA + Local Estimated blood loss: <10cc Specimen: Colostomy Edge / portion of sigmoid Findings: Perforation @ rectosigmoid colon, dense adhesions Complications: None Drain(s): ALEX drain (10mm Flat) Transferred to: ICU Condition: Fair
[2024-09-12] MEDS: PIPER TAZO 3.375 GM in NA CHLORIDE 0.9% 100 ML IV SCH ×2 (17:00→20:03)
[2024-09-12] MEDS: MEPERIDINE HCL 25 MG/ML SYR ONE (17:08)
[2024-09-12] MEDS: SUCCINYLCHOLINE 20 MG/ML (10 ML) IV ONE (19:15)
[2024-09-12] MEDS: HYDROMORPHONE HCL 2 MG/ML inj ONE (19:15)
[2024-09-12] MEDS: SUGAMMADEX SODIUM 200 MG/2 ML VIAL IV ONE (19:15)
--- NOTE | 2024-09-12 19:15 | RAD REPORT ---
EXAM: XR of the abdomen HISTORY: Abdominal pain Placement of NGT/OGT. Post Insertion. COMPARISON: None FINDINGS: XR of the abdomen shows a enteric tube is in the stomach.. Skin francheska. No suspicious logan cifications are seen. The bones are unremarkable. IMPRESSION: Enteric tube is in the stomach.
[2024-09-12] MEDS: LIDOCAINE HCL/EPINEPHRINE 20 ML MDV ONE (19:16)
--- NOTE | 2024-09-12 19:29 | CON ---
Date of Consultation: 09/12/2024 Brief Hpi: The patient is a 53-year-old man, known to me from previous interactions, with episodes o f diverticulitis. He was recently seen several months ago in the ER for an episode of diverticulitis with instructions to follow up with me. I saw him in the clinic, placed him on continued antibiotic s. He had some slow progression and improvement on the antibiotics including Levaquin and Flagyl, as well as a short course of Augmentin. He completed this course and has felt significantly better. Farrukh quinn had reimaging which showed a slight improvement of his sigmoid diverticulitis approximately 1 month ago. However, he comes in now with worsening abdominal pain which was sudden onset beginning earlie r today or late last night. The pain is severe, progressive, radiation up to his chest area up into his neck, back, and he has difficulty moving around due to severe pain. This is a more significant p ain that he has ever experienced before in the past. His previous CT showed sigmoid diverticulitis. As such, I suspect this is an exacerbation of that. Past Medical History: Significant for diverticulitis. Past Surgical History: He has never had a colonoscopy. We had planned to do a colonoscopy. However , he never made it to that as he continued to have pain and symptoms of chronic diverticulitis despit e treatment with multiple rounds of antibiotic treatment. He has had facial reconstruction. Allergies: NO KNOWN DRUG ALLERGIES. Medications: He was most recently on Augmentin. Social History: He does have cigarette use history. Denies recreational drug use. Review of Systems: Ten-point review of systems other than HPI, he had episodes of diarrhea beginning approximately 2 day s ago. Physical Examination: General: At the time of examination, he is awake, alert, and oriented. Psychiatric: He is appropriate, conversive. He is in moderate distress. HEENT: He is otherwise normocephalic. His sclerae were anicteric. His mucous membranes are moist. His oropharynx is clear. Neck: Supple without JVD. Chest: Normal expansion and excursion. Cardiovascular: Regular rate and rhythm. Abdomen: Firm, tender. There is peritonitis globally. There is guarding. He has an acute surgical abdomen by palpation. Extremities: No clubbing, cyanosis, or edema. Skin: Warm and dry. Laboratory Data: Revealed a white blood cell count of 14.0, hemoglobin is 13.6, hematocrit of 39.7, platelet count is 192, neutrophils are 91%. PT is 12.7, INR 1.12, PTT is 26.9. Sodium 136, potassiu m 4.2, chloride 104, carbon dioxide 29, BUN 20, creatinine 1.24, glucose is 104, lactic acid 1.1, logan cium is 8.8, magnesium 2.1, total bilirubin 0.9, direct component is 0.2, indirect is 0.7. AST 13, A LT 20, alkaline phosphatase is 58. His lipase is 26. He had a CT scan of the abdomen and pelvis, wh ich is officially read as multiple hepatic lesions present, largest in the right lobe measuring 7 cm, likely hemangioma, unremarkable gallbladder. Mild pneumoperitoneum is present. No bowel obstructio n or free fluid. There is mild diverticulosis coli of the sigmoid colon without diverticulitis. The re is pneumoperitoneum present, new since prior imaging, presumed to be perforated viscus. Assessment And Plan: 1. This is a 53-year-old male who has a history of diverticulitis of the sigmoid colon who has had pe rsistent pain. Even despite improvement, he was never completely free of either pain or tenderness a nd as such, he has evidence of perforation at this point, likely from the sigmoid colon. However, an additional foci is possible of a perforated viscus. I have explained the risks, benefits, and alter natives of exploratory laparotomy and bowel resection with colostomy creation including, but not limi melissa to bleeding, infection, damage to surrounding tissues, need for further operative procedures. In addition, I have discussed that if there is additional perforated viscus, we will manage that at the same time, such as if this is a perforated gastric or duodenal peptic ulcer, which he has no history of, we will manage that as well at the same time depending on the etiology of the free air. He may have a colostomy as described and require multiple surgeries in the future. I have explained the ris ks, benefits, and alternatives of the above-stated plan including, but not limited to bleeding, infec tion, damage to surrounding tissues, need for further operative procedures, blood clots, heart attack s, strokes, other unforeseen complications of the perioperative period, both anesthesia and non-anest hesia related. 2. Continue medical management. 3. IV antibiotics. 4. The patient displayed understanding of the above-stated plan and agreed to proceed as indicated. EBONI/JOSE Voice ID: [id number] Report ID: [id number]
[2024-09-12] MEDS: HYDROMORPHONE HCL 2 MG/ML inj IV PRN (20:25)
--- NOTE | 2024-09-12 22:04 | OP ---
Date of Procedure: 09/12/2024 Surgeon: Melissa Andersen MD, Preoperative Diagnosis: Perforated viscus. Postoperative Diagnosis: Perforated viscus. Procedures Performed: 1. Exploratory laparotomy. 2. Intestinal diversion/colostomy creation. Anesthesia: General endotracheal. Estimated Blood Loss: Less than 10 cc. Specimens: Edge of sigmoid colostomy, which was a portion of sigmoid colon. Findings: Perforation at the rectosigmoid colon and dense adhesions down with evidence of perforatio n and abscess in the rectosigmoid colon. Complications: None. Drains: 10 mm flat ALEX drain placed in the pelvis. Disposition: The patient was transferred to ICU in fair condition. Procedure In Detail: After informed consent was obtained, the patient was brought to the operating r oom, prepped and draped in the usual sterile fashion. After adequate anesthesia was achieved, I star melissa with an upper midline incision as the patient had significant pneumoperitoneum in this area yuliana rning for possible foregut perforation. A midline laparotomy incision was made with a 10 blade down through subcutaneous tissues. I then dissected down with electrocautery to the midline fascia. I el evated the peritoneum and entered it sharply with Metzenbaum scissors. I then opened the abdomen in the upper midline compartment in its entirety using electrocautery under direct vision. There was no injury to vital structures upon entering the abdomen. The patient had hemangiomas evident of the li sharon, which were spared throughout the procedure with no evidence of bleeding throughout the entire pr ocedure. I began by first inspecting the stomach, which was quite small. At this point, I palpated the stomach. I entered the lesser sac and found no evidence of perforation in the stomach at this po int. I then continued to look around the epigastrium and C loop of the duodenum. There was no evide nce of perforation this area. There was no murky fluid or any acute signs of perforation at this erna e. On inspecting the perihepatic space, there was minimal fluid in this area, no obvious contaminati on. I then continued to the left lower quadrant, where the patient had a history of sigmoid divertic ulitis. At this point, I started appreciating abscess-like material in the left lower quadrant in th e region of the sigmoid colon. I performed a takedown of the white line of Toldt after extending the midline laparotomy incision in the infraumbilical position with a 10 blade down to subcutaneous tiss ues, and electrocautery was used to dissect down under visualization. I then placed a self-retaining retractor and inspected the left lower quadrant at this point. Murky fluid was appreciated, and den se abdominal adhesions. After taking down the white line of Toldt in this area, splenic flexure mobi lization was not necessary in this area. I then continued down toward the rectosigmoid junction and noted there was significant thickening consistent with a perforation; however, no large holes were ap preciated. However, there was significant abscess material. This area was cleared out in its entire ty with warm irrigation. I then palpated the rectum and the sigmoid colon, which were firm. No obvi ous palpable masses were appreciated; however, the thickening in the area was obvious consistent with inflammatory change in infection/perforation/diverticulitis. At this point, after I irrigated the a jyotsna just beyond the rectosigmoid junction, I made a mesenteric window using an electrocautery. I the n passed a MICHELLE 60 blue load across the colon and divided at this point. I then took down the mesente ry using the LigaSure device and began mobilizing the colon up and away from the sigmoid colon away f rom the area of transection. I then placed two 3-0 Prolene sutures on the edges of the rectal stump to allow for marking sutures to be placed, therefore for future anastomosis making orientation and id entification easier. At this point, I proceeded to mobilize the colon along the white line allowing for a tension-free colostomy to be created in this area. I then demarcated an area in the left mid a bdomen through the rectus muscle, where I planned to place a colostomy. At this point, the abdomen w as copiously irrigated and suctioned out until completely dry multiple times and all abscess-type mat erial was suctioned out. I then ran the entire small bowel from the ligament of Treitz to the ileoce logan valve. No obvious injury was appreciated through this portion of the intestine. I then had the anesthesia provider place an NG tube, and I palpated into the body of the stomach and it was secured at this point. The remaining area of the abdomen and the compartment was once again irrigated thorou ghly at this point and suctioned out again. No hemostat was required. No additional leakage or cont amination was appreciated at this point. I then grabbed the skin, where the pre-marked area was for colostomy creation and cut it using electrocautery circumferentially around and dissected down removi ng the fat to expose the anterior rectus sheath. I then opened the anterior rectus sheath in a cruci ate type fashion the muscle fibers without burning or cutting them. I exposed the periton eum and the posterior rectus sheath, which was then opened in a similar cruciate type incision. Two fingers were passed through this area, and I passed a [place] clamp through this area. Grasping the sigmoid colon stump, I brought it up through this colostomy site, orienting the tenia, so that no twi sting of the colon occurred and the orientation was maintained at this point. I then laid the colon free with several centimeters hanging out in a tension-free type manner. At this point, I turned my attention back to the abdominal compartment. I returned all of the intraabdominal contents back to t heir normal anatomic position, ensuring no kinks were appreciated. I then brought the omentum down a nd wrapped down to the pelvis. The omentum, however, was quite thin and alveolar as the patient was quite thin overall and had minimal intraabdominal fat. At this point, I irrigated the abdomen once a gain, suctioned out to completely clear. No additional contamination was appreciated. I then turned my attention to abdominal closure. The patient was relaxed in his entirety. I placed an abdominal FISH in place and then closed the midline laparotomy incision using a #1 looped PDS in a running fash ion with good approximation of the tissues. After this was completed, the abdominal FISH was removed . I then irrigated the skin at this area with fresh warm saline and closed the midline incision with francheska. Prior to closure, however, I did place a 10 mm flat ALEX drain in the left lower quadrant th rough a separate stab incision. The 10 mm ALEX drain was placed into the pelvis adjacent to the perfor ation, which was appreciated in the area. I then secured that to the skin prior to abdominal closure and closure was completed as described above with the interrupted francheska. At this point after the ALEX drain was secured with the nylon suture, I turned my attention to maturing the colostomy. At this point, I used a combination of 3-0 silk and 3-0 Vicryl sutures to Karen the colostomy in the left a bdomen as described. The mucosa in colon was pink and viable at this point, and the small segment of transection was sent off for pathologic examination just prior to Karen'ing the colostomy. At this point, an ostomy appliance was applied and the patient had a sterile dressing placed over the top of the midline incision and the dressings were applied. The patient tolerated the procedure well witho ut incident or complication, and transferred to ICU in fair condition. All counts were correct at th e end of the case. EBONI/JOSE Voice ID: [id number] Report ID: [id number]
[2024-09-12] MEDS: HYDROMORPHONE HCL 1 MG/ML INJ IV ONE (23:05)
[2024-09-13] MEDS: KETOROLAC 30 MG/ML INJ IV ONE (01:56)
[2024-09-13] MEDS: HYDROMORPHONE HCL 0.5 MG/0.5 ML INJ IV ONE ×2 (02:39→04:39)
[2024-09-13 05:32] LABS: Absolute Lymphocytes (CBC) 0.7 K/uL (0.7-4.9); Absolute Monocytes 0.6 K/uL (0.1-1.3); Absolute Neutrophil 8.6 K/uL (1.8-8.0); Basophils % 0.2 % (0-1.3); Eosinophils % 0.1 % (0-4.4); Hematocrit 37.4 % (39.6-49.0); Hemoglobin 12.5 g/dL (13.6-17.9); Lymphocytes % 7.3 % (15.3-44.8); MCH 31.6 pg (27.0-35.0); MCHC 33.5 g/dL (32.0-36.0); MCV 94.5 fL (80-100); MPV 8.5 fL (7.6-11.3); Monocytes % 5.8 % (3.3-12.3); Neutrophils % 86.6 % (41.7-73.7); Platelets 173 thou/uL (152-406); RBC Red Blood Cell Count 3.96 M/uL (4.33-5.43); Red Cell Distribution Width 14.1 % (12.1-15.2)
[2024-09-13 05:46] LABS: Albumin 2.7 g/dL (3.4-5.0); Albumin/Globulin Ratio 0.9 (1.1-1.8); Anion Gap 9.2 mEq/L (5.0-15.0); Bilirubin Total 0.8 mg/dL (0.2-1.0); Globulin 3.1 g/dL (2.3-3.5); Magnesium 1.9 mg/dL (1.6-2.4); Phosphorus 3.4 mg/dL (2.5-4.9); Potassium 4.2 mEq/L (3.5-5.1); Protein, Total 5.8 g/dL (6.4-8.2)
[2024-09-13] MEDS: ENOXAPARIN 40 MG/0.4 ML SQ SCH (08:06)
[2024-09-13] MEDS: FENTANYL CITR 100 MCG/2 ML IV PRN (08:07)
--- NOTE | 2024-09-13 10:54 | P.PN ---
Subjective Date of Service: 09/13/24 Chief Complaint: Pneumoperitoneum Subjective: Abdominal pain ok controlled. No chest pain or shortness of breath. No nausea or vomiting. Looks uncomfortable in the bed. Objective: General appearance: Alert and uncomfortable CVS: Normal S1 and S2 Lungs: Clear to auscultation bilaterally Abdomen: Soft, post op tenderness expected, NG tube present Extremities: No lower extremity edema Physical Examination - Vital Signs Temperature: 99.6 F Blood Pressure: 121/62 Pulse: 71 Respirations: 21 Pulse Ox (%): 98 - Studies Laboratory Data (last 24 hrs) 09/12/24 09/12/24 09/12/24 Assessment And Plan - Plan Assessment and plan: Labs reviewed. 1. Pneumoperitoneum, bowel perforation: s/p surgery 3/2 -Continue Zosyn -has NG tube -further cares and diet as per surgery 2. BPH Resume Flomax when tolerating p.o. 53 yo with perforated rectosigmoid colon, s/p surgery with colostomy. Plan Discussed with the patient and family at bedside, discharge plan depends on clinical progress.
[2024-09-13] MEDS: MORPHINE 2 MG/ML SYR IV PRN (11:49)
--- NOTE | 2024-09-13 12:03 | P.PN ---
Subjective Date of Service: 09/15/24 Chief Complaint: Pneumoperitoneum Subjective: Improving (Pain improved, but still has pain control issues. no acute events) Physical Examination - Vital Signs Temperature: 99.6 F Blood Pressure: 120/62 Pulse: 81 Respirations: 30 Pulse Ox (%): 99 - Physical Exam General: Alert, In no apparent distress, Cooperative Gastrointestinal: Other (Soft mild appropriate tenderness to palpation, no rebound or guarding colostomy clean and dry no infection.) Integumentary: No rashes Neurological: Normal speech - Studies Laboratory Data (last 24 hrs) 09/12/24 11:45 PT 12.7 H INR 1.12 APTT 26.9 Assessment And Plan - Plan Patient is a 53-year-old man known to me from previous encounters with history of diverticulitis who presented with perforated diverticulitis. Status post exploratory laparotomy diverting colostomy on 09/12/2024 -Neuro pain: Continue morphine as needed, will modify as needed. -CVS: Stable - Pulm: Good respiratory effort, continue incentive spirometry. -GI: Ostomy is pink and viable with minimal clear fluid output, await GI function. Continue NG tube decompression serial abdominal exams. Incision clean and dry francheska in place. ALEX drain is serosanguineous. FEN: Continue IV fluid hydration, electrolyte replacement protocol, n.p.o. ID: Continue antibiotic coverage. Prophylaxis: Continue Lovenox, SCDs, incentive spirometry, Renal: Remove Santacruz catheter soon as possible, if retention occurs we will have to reinsert Santacruz catheter. Physical therapy
--- NOTE | 2024-09-13 12:06 | EKG ---
Test Date: 2024-09-12 Test Time: 11:11:00 Consumer Experience Consultant: MAMI MEASUREMENT RESULTS: Intervals: Rate: 72 MI: 130 QRSD: 96 QT: 378 QTc: 413 [place]: P: 64 MI: 130 QRS: 40 T: 64 INTERPRETIVE STATEMENTS: Normal sinus rhythm Normal ECG No previous ECG available for comparison Electronically Signed On 09-13-24 12:03:07 NEUROPATHOLOGIST by Humberto Rosales
[2024-09-13] MEDS: D5 0.9 NS 1,000 ML IV SCH (12:54)
[2024-09-13] MEDS: MORPHINE 4 MG/ML SYR IV PRN (13:50)
[2024-09-14 05:59] LABS: Absolute Eosinophils 0.1 K/uL (0-0.5); Absolute Lymphocytes (CBC) 0.8 K/uL (0.7-4.9); Absolute Monocytes 0.6 K/uL (0.1-1.3); Basophils % 0.2 % (0-1.3); Eosinophils % 1.6 % (0-4.4); Hematocrit 33.8 % (39.6-49.0); Hemoglobin 11.7 g/dL (13.6-17.9); Lymphocytes % 12.1 % (15.3-44.8); MCH 32.2 pg (27.0-35.0); MCHC 34.5 g/dL (32.0-36.0); MCV 93.4 fL (80-100); MPV 9.1 fL (7.6-11.3); Monocytes % 9.6 % (3.3-12.3); Neutrophils % 76.5 % (41.7-73.7); Platelets 152 thou/uL (152-406); RBC Red Blood Cell Count 3.62 M/uL (4.33-5.43); Red Cell Distribution Width 13.8 % (12.1-15.2)
[2024-09-14 06:12] LABS: Albumin 2.3 g/dL (3.4-5.0); Albumin/Globulin Ratio 0.7 (1.1-1.8); Anion Gap 6.8 mEq/L (5.0-15.0); Bilirubin Total 0.5 mg/dL (0.2-1.0); Globulin 3.1 g/dL (2.3-3.5); Magnesium 2.1 mg/dL (1.6-2.4); Phosphorus 1.7 mg/dL (2.5-4.9); Potassium 3.8 mEq/L (3.5-5.1); Protein, Total 5.4 g/dL (6.4-8.2)
[2024-09-14] MEDS: POTASSIUM PHOS IN 0.9 % NACL 15 MMOL/250 ML BAG IV ONE (06:23)
[2024-09-14] MEDS: POTASSIUM PHOS IN 0.9 % NACL 15 MMOL/250 ML BAG IV SCH (12:19)
--- NOTE | 2024-09-14 13:51 | P.PN ---
Subjective Date of Service: 09/14/24 Chief Complaint: Pneumoperitoneum Subjective: Abdominal pain ok controlled. No chest pain or shortness of breath. No nausea or vomiting. Looks uncomfortable in the bed. Not passing gas yet. Objective: General appearance: Alert and uncomfortable CVS: Normal S1 and S2 Lungs: Clear to auscultation bilaterally Abdomen: Soft, post op tenderness expected, NG tube present, no bowel sounds. Extremities: No lower extremity edema Physical Examination - Vital Signs Temperature: 98.8 F Blood Pressure: 115/57 Pulse: 55 Respirations: 15 Pulse Ox (%): 92 Assessment And Plan - Plan Assessment and plan: Labs reviewed. 1. Pneumoperitoneum, bowel perforation: s/p surgery 3/ -Continue Zosyn -has NG tube -further cares and diet as per surgery 2. BPH Resume Flomax when tolerating p.o. 3. Hypophosphatemia: Replace and monitor. 53 yo with perforated rectosigmoid colon, s/p surgery with colostomy. Plan Discussed with the patient and family at bedside, discharge plan depends on clinical progress.
[2024-09-15 00:41] VITALS: BMI 23.3
[2024-09-15] MEDS: MORPHINE 4 MG/ML SYR IV ONE (02:59)
[2024-09-15 05:45] LABS: Absolute Eosinophils 0.2 K/uL (0-0.5); Absolute Lymphocytes (CBC) 0.8 K/uL (0.7-4.9); Absolute Monocytes 0.6 K/uL (0.1-1.3); Absolute Neutrophil 4.4 K/uL (1.8-8.0); Basophils % 0.2 % (0-1.3); Eosinophils % 3.2 % (0-4.4); Hematocrit 33.5 % (39.6-49.0); Hemoglobin 11.6 g/dL (13.6-17.9); Lymphocytes % 13.2 % (15.3-44.8); MCH 32.1 pg (27.0-35.0); MCHC 34.5 g/dL (32.0-36.0); MCV 93.2 fL (80-100); MPV 8.3 fL (7.6-11.3); Monocytes % 10.6 % (3.3-12.3); Neutrophils % 72.8 % (41.7-73.7); Nucleated Red Blood Cells % 0.1 % (0-0); Platelets 197 thou/uL (152-406); Red Cell Distribution Width 13.5 % (12.1-15.2)
[2024-09-15 05:51] LABS: Albumin 2.2 g/dL (3.4-5.0); Albumin/Globulin Ratio 0.6 (1.1-1.8); Anion Gap 6.5 mEq/L (5.0-15.0); Bilirubin Total 0.6 mg/dL (0.2-1.0); Globulin 3.5 g/dL (2.3-3.5); Magnesium 1.9 mg/dL (1.6-2.4); Phosphorus 2.7 mg/dL (2.5-4.9); Potassium 3.5 mEq/L (3.5-5.1); Protein, Total 5.7 g/dL (6.4-8.2)
[2024-09-15] MEDS: KCL 20 MEQ/100 mL IVPB 20 MEQ/100 ML BAG IV SCH (06:43)
[2024-09-15] MEDS: MORPHINE 4 MG/ML SYR IV PRN (14:43)
--- NOTE | 2024-09-15 16:10 | P.PN ---
Subjective Date of Service: 09/15/24 Chief Complaint: Pneumoperitoneum Physical Examination - Vital Signs Temperature: 99.6 F Blood Pressure: 120/62 Pulse: 81 Respirations: 16 Pulse Ox (%): 99 Assessment And Plan - Plan Physical examination General: Alert and oriented x3, NAD, HEENT: NG tube to suction in place. Neck: Supple, no elevated JVD Heart: Heart sounds 1 and 2 normal, regular rhythm, normal rate, no pedal edema Lungs: Clear to auscultation bilaterally, adequate breath sounds bilaterally, no rhonchi or crackles. Abdomen: Soft, nondistended, nontender, decreased bowel sounds, left lower quadrant colostomy with no stool output OR gas. Extremities: No tenderness, no deformity Skin: Normal skin turgor, no rash, no nodules or ulcers. Neuro: No focal motor deficit. Normal speech. Psychiatry: Normal mood, no agitation. Diagnosis Pneumoperitoneum Colonic perforation status post colectomy with diverting colostomy BPH Acute blood loss anemia Plan: Pneumoperitoneum Colonic perforation Status post colon resection with diverting colostomy by Dr. Ganesh Andersen is following and managing Continue IV Zosyn NG tube care and diet per Dr. Andersen. Monitor and optimize electrolytes. BPH Resume Flomax once oral intake is resumed DVT prophylaxis: Lovenox
[2024-09-16 05:23] LABS: Absolute Eosinophils 0.2 K/uL (0-0.5); Absolute Lymphocytes (CBC) 0.8 K/uL (0.7-4.9); Absolute Monocytes 0.6 K/uL (0.1-1.3); Absolute Neutrophil 4.1 K/uL (1.8-8.0); Basophils % 0.6 % (0-1.3); Eosinophils % 4.1 % (0-4.4); Hematocrit 36.3 % (39.6-49.0); Hemoglobin 12.4 g/dL (13.6-17.9); Lymphocytes % 13.8 % (15.3-44.8); MCH 31.6 pg (27.0-35.0); MCHC 34.2 g/dL (32.0-36.0); MCV 92.5 fL (80-100); MPV 8.2 fL (7.6-11.3); Monocytes % 10.6 % (3.3-12.3); Neutrophils % 70.9 % (41.7-73.7); Platelets 194 thou/uL (152-406); RBC Red Blood Cell Count 3.93 M/uL (4.33-5.43); Red Cell Distribution Width 13.1 % (12.1-15.2)
[2024-09-16 05:28] LABS: Albumin 2.3 g/dL (3.4-5.0); Albumin/Globulin Ratio 0.6 (1.1-1.8); Anion Gap 8.5 mEq/L (5.0-15.0); Bilirubin Total 0.5 mg/dL (0.2-1.0); Globulin 3.7 g/dL (2.3-3.5); Magnesium 2.1 mg/dL (1.6-2.4); Phosphorus 2.6 mg/dL (2.5-4.9); Potassium 3.5 mEq/L (3.5-5.1)
--- NOTE | 2024-09-16 13:44 | P.PN ---
Subjective Date of Service: 09/16/24 Chief Complaint: Pneumoperitoneum Patient has no new complaint. NG tube is clamped today. No BM yet. No recorded fever. Physical Examination - Vital Signs Temperature: 98.6 F Blood Pressure: 119/62 Pulse: 59 Respirations: 16 Pulse Ox (%): 99 Assessment And Plan - Plan Physical examination General: Alert and oriented x3, NAD, HEENT: NG tube to suction in place. Neck: Supple, no elevated JVD Heart: Heart sounds 1 and 2 normal, regular rhythm, normal rate, no pedal edema Lungs: Clear to auscultation bilaterally, adequate breath sounds bilaterally, no rhonchi or crackles. Abdomen: Soft, nondistended, nontender, decreased bowel sounds, left lower quadrant colostomy with no stool output. Skin: Normal skin turgor, no rash. Neuro: No focal motor deficit. Psychiatry: Dysphoric. Diagnosis Pneumoperitoneum Colonic perforation status post colectomy with diverting colostomy BPH Acute blood loss anemia Plan: Pneumoperitoneum Colonic perforation Status post colon resection with diverting colostomy by Dr. Ganesh Andersen is following and managing Continue IV Zosyn NG tube care and diet per Dr. Andersen. Monitor and optimize electrolytes. BPH Resume Flomax once oral intake is resumed. 09/16 No BM yet. NG tube clamped. General surgery Dr. Andersen is following and managing Empiric IV Zosyn NG tube removal and diet resumption per Dr. Andersen. Supportive measures with analgesics as needed. DVT prophylaxis: Lovenox
[2024-09-16] MEDS: MORPHINE 4 MG/ML SYR IV PRN (20:38)
[2024-09-17] MEDS: KETOROLAC 30 MG/ML INJ IV ONE (04:38)
[2024-09-17 04:46] LABS: Absolute Eosinophils 0.3 K/uL (0-0.5); Absolute Lymphocytes (CBC) 0.9 K/uL (0.7-4.9); Absolute Monocytes 0.7 K/uL (0.1-1.3); Absolute Neutrophil 3.4 K/uL (1.8-8.0); Basophils % 0.9 % (0-1.3); Eosinophils % 4.7 % (0-4.4); Hematocrit 35.6 % (39.6-49.0); Hemoglobin 12.2 g/dL (13.6-17.9); Lymphocytes % 17.5 % (15.3-44.8); MCH 31.4 pg (27.0-35.0); MCHC 34.3 g/dL (32.0-36.0); MCV 91.7 fL (80-100); MPV 7.9 fL (7.6-11.3); Monocytes % 12.2 % (3.3-12.3); Neutrophils % 64.7 % (41.7-73.7); Nucleated Red Blood Cells % 0.1 % (0-0); Platelets 202 thou/uL (152-406); RBC Red Blood Cell Count 3.88 M/uL (4.33-5.43)
[2024-09-17 05:07] LABS: Albumin 2.3 g/dL (3.4-5.0); Albumin/Globulin Ratio 0.6 (1.1-1.8); Anion Gap 8.5 mEq/L (5.0-15.0); Bilirubin Total 0.5 mg/dL (0.2-1.0); Globulin 3.6 g/dL (2.3-3.5); Magnesium 2.2 mg/dL (1.6-2.4); Phosphorus 3.2 mg/dL (2.5-4.9); Potassium 3.5 mEq/L (3.5-5.1); Protein, Total 5.9 g/dL (6.4-8.2)
--- NOTE | 2024-09-17 13:33 | P.PN ---
Subjective Date of Service: 09/17/24 Chief Complaint: Pneumoperitoneum Subjective: Improving (NG tube removed yesterday tolerating diet well with clear liquid diet, continued output of gas in the bag. Ambulatory yesterday. Pain improved) Physical Examination - Vital Signs Temperature: 98.1 F Blood Pressure: 102/57 Pulse: 46 Respirations: 12 Pulse Ox (%): 99 - Physical Exam General: Alert, In no apparent distress, Oriented x3, Cooperative Respiratory: Clear to auscultation bilaterally, Normal air movement Cardiovascular: Regular rate/rhythm Gastrointestinal: Other (Soft, mild appropriate tenderness to palpation, no rebound or guarding no focal peritonitis, ALEX drain remains serosanguineous, colostomy is pink and viable and functional at this time. Midline incision remains clean and dry with francheska in place.) Integumentary: No rashes Neurological: Normal speech - Studies Microbiology Data (last 24 hrs): 09/12/24 11:35 Blood - Blood Aerobic Blood Culture - Final No growth in 5 days. 09/12/24 11:35 Blood - Blood Anaerobic Blood Culture - Final No growth in 5 days. 09/12/24 11:45 Blood - Blood Aerobic Blood Culture - Final No growth in 5 days. 09/12/24 11:45 Blood - Blood Anaerobic Blood Culture - Final No growth in 5 days. Assessment And Plan - Plan Patient is a 53-year-old man known to me from previous encounters with history of diverticulitis who presented with perforated diverticulitis. Status post exploratory laparotomy diverting colostomy on 09/12/2024 -Neuro pain: Continue morphine as needed, will modify as needed. Transition to p.o. [place] as he is tolerating diet. Encourage p.o. pain meds and wean IV pain meds as tolerated -CVS: Stable - Pulm: Good respiratory effort, continue incentive spirometry. -GI: Ostomy is pink and viable would likely pull ALEX soon,. Incision clean and dry francheska in place. ALEX drain is serosanguineous. FEN: Continue IV fluid hydration, electrolyte replacement protocol, advance diet to soft diet. ID: Continue antibiotic coverage. Prophylaxis: Continue Lovenox, SCDs, incentive spirometry, Renal: Remove Santacruz catheter after he initiates his prostate medication. Physical therapy
[2024-09-17] MEDS: FERROUS SULFATE 325 MG TAB PO SCH (14:00)
[2024-09-17] MEDS: GABAPENTIN 300 MG CAP PO SCH (21:13)
[2024-09-17] MEDS: FINASTERIDE 5 MG TAB PO SCH (21:13)
[2024-09-18 05:19] LABS: Absolute Basophils 0.1 K/uL (0-0.5); Absolute Eosinophils 0.3 K/uL (0-0.5); Absolute Lymphocytes (CBC) 1.1 K/uL (0.7-4.9); Absolute Monocytes 0.7 K/uL (0.1-1.3); Absolute Neutrophil 3.7 K/uL (1.8-8.0); Basophils % 1.1 % (0-1.3); Eosinophils % 5.1 % (0-4.4); Hematocrit 37.4 % (39.6-49.0); Hemoglobin 12.8 g/dL (13.6-17.9); MCH 31.3 pg (27.0-35.0); MCHC 34.2 g/dL (32.0-36.0); MCV 91.6 fL (80-100); Monocytes % 11.4 % (3.3-12.3); Neutrophils % 63.4 % (41.7-73.7); Platelets 223 thou/uL (152-406); RBC Red Blood Cell Count 4.08 M/uL (4.33-5.43); Red Cell Distribution Width 13.2 % (12.1-15.2)
[2024-09-18 05:40] LABS: Albumin 2.5 g/dL (3.4-5.0); Albumin/Globulin Ratio 0.7 (1.1-1.8); Anion Gap 9.6 mEq/L (5.0-15.0); Bilirubin Total 0.5 mg/dL (0.2-1.0); Globulin 3.7 g/dL (2.3-3.5); Phosphorus 2.9 mg/dL (2.5-4.9); Potassium 3.6 mEq/L (3.5-5.1); Protein, Total 6.2 g/dL (6.4-8.2)
--- NOTE | 2024-09-18 06:54 | RAD REPORT ---
EXAMINATION: UPPER EXTREMITY VENOUS UNILATE CLINICAL INDICATION: Male, 53 years old.Pain/Swelling TECHNIQUE: Multiplanar grayscale and color Doppler images were obtained in a upper extremity venous ultrasound. Spectral analysis of the Doppler waveforms were performed. COMPARISON: No prior exams FINDINGS: The internal jugular vein, subclavian vein, axillary vein, basilic vein, brachial vein, cephalic vein , radial vein, and ulnar vein were evaluated and patent. The brachial vein, cephalic vein, radial vein, and ulnar veins were compressible and patent. IMPRESSION: No evidence of deep venous thrombosis in the right upper extremity.
--- NOTE | 2024-09-18 07:17 | P.PN ---
Date of Service: 09/17/24 Subjective Plan to advance diet today, DC Sanatcruz catheter, pain control as needed analgesia Physical Examination - Vital Signs Reviewed - Plan Physical examination General: Alert and oriented x3, NAD, afebrile HEENT: Supple, Neck: Supple, Heart: Regular rate and rhythm, Lungs: Clear to auscultation bilaterally, equal, unlabored Abdomen: Soft, nontender, + bowel sounds,, left lower quadrant colostomy skin pink, minimal liquid output. Skin: Normal skin turgor, no rash. Neuro: No focal motor deficit. Psychiatry: Stable mood, Assessment And Plan Diagnosis Pneumoperitoneum Colonic perforation status post colectomy with diverting colostomy BPH Acute blood loss anemia Plan: Pneumoperitoneum Colonic perforation Status post colon resection with diverting colostomy by Dr. Ganesh Andersen is following and managing Continue IV Zosyn NG, tube care and diet per Dr. Andersen. Monitor and optimize electrolytes. BPH Resume Flomax once oral intake is resumed. 09/16 No BM yet. NG tube clamped. General surgery Dr. Andersen is following and managing Empiric IV Zosyn NG tube removal and diet resumption per Dr. Andersen. Supportive measures with analgesics as needed. 09/17 Advance diet to soft per surgery + Bowel sounds, no stool output Educated on ALEX drain, ostomy, I&O Pain control as needed analgesia DVT prophylaxis: Lovenox
[2024-09-18 08:16] VITALS: O2SAT 96
[2024-09-18] MEDS ORDERED: INDOMETHACIN 50 MG PO SCH (09:00)
[2024-09-18] MEDS: TAMSULOSIN 0.4 MG SR CAP PO SCH (09:26)
[2024-09-18] MEDS: INDOMETHACIN 25 MG CAP PO SCH (09:26)
--- NOTE | 2024-09-18 12:14 | P.DS ---
Admission Date: 09/12/24 Discharge Date: 09/18/24 Disposition: DC HOME/HOME HEALTH CARE Discharge Condition: GOOD Reason for Admission: Pneumoperitoneum Brief History of Present Illness: 53-year-old male with history of diverticulitis, BPH presents the emergency department with chief complaint of severe abdominal pain. He reports that most recently his symptoms began on 09/10/2024 but he has been dealing with intermittent episodes of diverticulitis since June of last year. He was evaluated in the emergency department his white blood cell count was 14, CT of the abdomen pelvis showed pneumoperitoneum presumed related to perforated viscus. Surgery was contacted and patient is to be brought to the OR now for emergent surgery - Physical Exam General: Alert, In no apparent distress, Oriented x3 HEENT: Atraumatic, PERRLA, EOMI Neck: Supple, 2+ carotid pulse no bruit Respiratory: Clear to auscultation bilaterally, Normal air movement Cardiovascular: Regular rate/rhythm, Normal S1 S2 Gastrointestinal: Normal bowel sounds, ostomy place, stoma pink, Musculoskeletal: No tenderness Integumentary: No rashes Neurological: Normal speech, Normal strength at 5/5 x4 extr, Normal affect - Studies Hospital Course: 53-year-old male with history of diverticulitis, BPH presents the emergency department with chief complaint of severe abdominal pain. He reports that most recently his symptoms began on 09/10/2024 but he has been dealing with intermittent episodes of diverticulitis since June of last year. He was evaluated in the emergency department his white blood cell count, CT of the abdomen pelvis showed pneumoperitoneum presumed related to perforated viscus. Surgery was consulted, he his is status post colostomy by Dr Andersen. Tolerating diet, stable to discharge home. Follow up with surgery after discharge. Discharge home on PO anaglesics, Diet as tolerated, low fiber, reside Educated and return demonstration of ostomy, ostomy care, I&O Midline incision remains clean and dry with francheska in place.(follow up with surgery for staple removal) No heavy lifting greater than 5 lbs Abdominal binder as instructed use by surgeon. Diagnosis Pneumoperitoneum Colonic perforation status post colectomy with diverting colostomy-exploratory laparotomy diverting colostomy on 09/12/2024 BPH Acute blood loss anemia-HH stable Plan: Pneumoperitoneum Colonic perforation Perforation at the rectosigmoid colon and dense adhesions down with evidence of perforation and abscess in the rectosigmoid colon, status post colostomy -exploratory laparotomy diverting colostomy on 09/12/2024 Status post colon resection with diverting colostomy by Dr. Andersen BPH - Resume Flomax once oral intake is resumed. Continue home medicines as previously prescribed GOAL: Clear understanding of disease process INSTRUCTIONS: Physician Discharge Instructions: -Follow-up with PCP in 1 to 2 weeks -Follow-up with surgery after discharge -Please call if any questions regarding hospital stay -Please call nursing station at [phone] if any nursing or medication questions -Return to the emergency room if symptoms worsen Diet: ADA, low sodium Activity: Fall precautions Vital Signs/Physical Exam: Temp Pulse Resp BP Pulse Ox 97.5 F 59 16 110/65 99 09/18/24 08:15 09/18/24 08:15 09/18/24 08:15 09/18/24 08:15 09/17/24 13:33 Laboratory Data at Discharge: WBC 5.80 thou/uL (4.3-10.9) 09/18/24 04:52 Hgb 12.8 g/dL (13.6-17.9) L 09/18/24 04:52 Hct 37.4 % (39.6-49.0) L 09/18/24 04:52 Plt Count 223 thou/uL (152-406) 09/18/24 04:52 PT 12.7 SECONDS (10.0-13.0) H 09/12/24 11:45 INR 1.12 09/12/24 11:45 APTT 26.9 SECONDS (24.3-36.9) 09/12/24 11:45 Sodium 139 mEq/L (136-145) 09/18/24 04:52 Potassium 3.6 mEq/L (3.5-5.1) 09/18/24 04:52 BUN 11 mg/dL (7-18) 09/18/24 04:52 Creatinine 0.98 mg/dL (0.70-1.30) 09/18/24 04:52 Glucose 89 mg/dL (74-106) 09/18/24 04:52 Phosphorus 2.9 mg/dL (2.5-4.9) 09/18/24 04:52 Magnesium 2.0 mg/dL (1.6-2.4) 09/18/24 04:52 Total Bilirubin 0.5 mg/dL (0.2-1.0) 09/18/24 04:52 AST 54 U/L (15-37) H 09/18/24 04:52 ALT 42 U/L (16-61) 09/18/24 04:52 Alkaline Phosphatase 42 U/L (45-117) L 09/18/24 04:52 Lipase 26 U/L (13-75) 09/12/24 10:40 Home Medications: Finasteride 5 mg PO BEDTIME 09/12/24 Gabapentin 300 mg PO BEDTIME 09/12/24 Indomethacin 50 mg PO DAILY 09/12/24 Tamsulosin HCl [Flomax] 0.4 mg PO DAILY 09/12/24 Codeine/APAP [Tylenol W/Codeine #3 tab] 1 tab PO Q6HP PRN 5 Days #15 tab 09/18/24 New Medications: Codeine/APAP [Tylenol W/Codeine #3 tab] 1 tab PO Q6HP PRN 5 Days #15 tab PRN Reason: Pain Diet: [place] Activity: No lifting more than 10 lbs Followup: Piero Andersen MD [ACTIVE - CAN ADMIT] - (Call Friday for appointment) Clarence Landeros MD [Primary Care Provider] - 1-2 Weeks Time spent managing pt's care (in minutes): 45
[2024-09-18 16:46] VITALS: BP 109/60; TEMP 97.9
== END 2024-09-18 21:00 | disposition home health service (06) | DRG 330 ==
LOC: ER 10:10 → ERHOLD 13:31 → 3RD-ICU 14:23 → 2ND 09-15 12:00
PROVIDERS: ADMIT Hospitalist; ATTEND Internal Medicine
PROC: 0DH67UZ Insertion of Feeding Device into Stomach, Via Natural or Artificial Opening (ICD-10-PCS; 2024-09-12)
PROC: 0D1N0Z4 Bypass Sigmoid Colon to Cutaneous, Open Approach (ICD-10-PCS; principal; 2024-09-12 14:48)
PROC: 0T9B70Z Drainage of Bladder with Drainage Device, Via Natural or Artificial Opening (ICD-10-PCS; 2024-09-14)
DX: K57.20 Diverticulitis of large intestine with perforation and abscess without bleeding (principal); D62 Acute posthemorrhagic anemia; E83.39 Other disorders of phosphorus metabolism; N40.0 Benign prostatic hyperplasia without lower urinary tract symptoms; Z87.891 Personal history of nicotine dependence
CPT/HCPCS: 36415; 74018; 74177; 80048; 80053; 80076; 82947; 83605; 83690; 83735; 84100; 84484; 85025; 85610; 85730; 87040; 88304; 88305; 93005; 93971; 94010; 96374; 96375; 97116; 97161; 97530; 99285; A4314; J1171; J1650; J2003; J2175; J2250; J2270; J2405; J2543; J2704; J3010; J3480; J7030; J7042; J7120; Q9967

== ENCOUNTER 2024-11-19 06:38 | Day surgery (SDC) | payer BC, OTHER ==
[2024-11-17 13:02] LABS: Absolute Monocytes 0.4 K/uL (0.1-1.3); Absolute Neutrophil 4.7 K/uL (1.8-8.0); Basophils % 0.6 % (0-1.3); Eosinophils % 0.7 % (0-4.4); Hematocrit 38.3 % (39.6-49.0); Hemoglobin 13.3 g/dL (13.6-17.9); Lymphocytes % 15.5 % (15.3-44.8); MCHC 34.6 g/dL (32.0-36.0); MCV 92.5 fL (80-100); MPV 8.3 fL (7.6-11.3); Monocytes % 6.7 % (3.3-12.3); Neutrophils % 76.5 % (41.7-73.7); Nucleated Red Blood Cells % 0.1 % (0-0); Platelets 169 thou/uL (152-406); RBC Red Blood Cell Count 4.14 M/uL (4.33-5.43); Red Cell Distribution Width 14.4 % (12.1-15.2)
[2024-11-17 13:16] LABS: Anion Gap 6.8 mEq/L (5.0-15.0); Potassium 3.8 mEq/L (3.5-5.1)
[2024-11-19] MEDS ORDERED: propofoL 200 MG/20 ML VIAL IV ONE (07:28)
[2024-11-19] MEDS ORDERED: LIDOCAINE 1% MPF 5 ML VIAL ONE (07:28)
[2024-11-19] MEDS: Ringers Lactate 1,000 ML IV ONE (07:45)
[2024-11-19 08:35] VITALS: TEMP 97.9
[2024-11-19] MEDS ORDERED: GLYCOPYRROLATE 0.2 MG/ML SYR ONE (08:48)
[2024-11-19] MEDS ORDERED: ONDANSETRON 4 MG/2 ML VIAL ONE (08:48)
[2024-11-19 10:40] VITALS: BP 127/78; O2SAT 100
== END 2024-11-19 09:15 | disposition home or self-care (01) ==
LOC: OR 06:38
PROVIDERS: ATTEND Surgery
PROC: 0DBN8ZX Excision of Sigmoid Colon, Via Natural or Artificial Opening Endoscopic, Diagnostic (ICD-10-PCS; principal; 2024-11-19 08:00)
DX: Z12.11 Encounter for screening for malignant neoplasm of colon (principal); K91.89 Other postprocedural complications and disorders of digestive system; K59.89 Other specified functional intestinal disorders; K52.9 Noninfective gastroenteritis and colitis, unspecified; K62.89 Other specified diseases of anus and rectum; R23.3 Spontaneous ecchymoses
CPT/HCPCS: 85025; 80048; 36415; 88305; 45380; J2704; J2003; J2405; J7120

== ENCOUNTER 2025-01-11 10:34 | Inpatient (IN) | payer BC, OTHER ==
[2025-01-07 14:40] LABS: Absolute Lymphocytes (CBC) 1.3 K/uL (0.7-4.9); Hematocrit 37.5 % (39.6-49.0); Hemoglobin 13.2 g/dL (13.6-17.9); MCH 31.7 pg (27.0-35.0); MCHC 35.2 g/dL (32.0-36.0); MCV 90.1 fL (80-100); MPV 8.6 fL (7.6-11.3); Nucleated RBC Absolute Count 0.0 (0-0); Nucleated Red Blood Cells % 0.0 % (0-0); RBC Red Blood Cell Count 4.16 M/uL (4.33-5.43); White Blood Count 5.10 thou/uL (4.3-10.9)
[2025-01-07 14:52] LABS: PT Prothrombin Time 11.8 SECONDS (10-13.0); PTT, Activated Partial Thromb 30.9 SECONDS (27.2-37.4); Protime INR 1.04
[2025-01-07 14:54] LABS: Anion Gap 7.6 mEq/L (5.0-15.0); BUN Blood Urea Nitrogen 18.0 mg/dL (7-18); Glucose Level 128.0 mg/dL (74-106); Potassium 3.6 mEq/L (3.5-5.1)
[2025-01-11] MEDS: Ringers Lactate 1,000 ML IV ONE ×3 (10:45→14:17)
[2025-01-11] MEDS: CEFAZOLIN SODIUM 2 GM/VIAL ONE (10:52)
[2025-01-11] MEDS: SUGAMMADEX SODIUM 200 MG/2 ML VIAL IV ONE (10:57)
[2025-01-11] MEDS: SUCCINYLCHOLINE 20 MG/ML (10 ML) IV ONE (10:57)
[2025-01-11] MEDS ORDERED: FENTANYL CITR 250 MCG/5 ML ONE (11:04)
[2025-01-11] MEDS ORDERED: LIDOCAINE 2% MPF 5 ML VIAL ONE (11:04)
[2025-01-11] MEDS ORDERED: MIDAZOLAM HCL 2 MG/2 ML INJ ONE (11:04)
[2025-01-11] MEDS ORDERED: ROCURONIUM 50 MG/5 ML VIAL IV ONE ×3 (11:04→16:13)
[2025-01-11] MEDS ORDERED: EPHEDRINE SULF 50 MG/ML VIAL ONE (12:09)
[2025-01-11] MEDS: LIDOCAINE HCL/EPINEPHRINE 20 ML MDV ONE (12:53)
[2025-01-11] MEDS ORDERED: ONDANSETRON 4 MG/2 ML VIAL ONE (16:16)
--- NOTE | 2025-01-11 16:57 | P.OP ---
Regulatory Technician: Rosemary Diez Preoperative diagnosis: History of Perforated Colon with Colostomy Creation Postoperative diagnosis: History of Perforated Colon with Colostomy Creation Primary procedure: Laparoscopic Partial Colectomy with colostomy reversal Secondary procedure: Laparoscopic adhesiolysis > 2 hours Other procedure(s): Laparoscopic splenic flexure mobilization Anesthesia: GETA + Local Estimated blood loss: 150cc Specimen: Rectosigmoid colon, partial left colon Findings: Dense Adhesions, firm adhesions to spleen, dense pelvic adhesions Complications: None Transferred to: Recovery Room Condition: Good
[2025-01-11] MEDS: HYDROMORPHONE HCL 1 MG/ML INJ ONE (17:14)
[2025-01-11] MEDS: HYDROMORPHONE HCL 2 MG/ML inj ONE (17:24)
[2025-01-11] MEDS: D5.45NS W/KCL 20MEQ 1,000 ML IV SCH (19:34)
[2025-01-11] MEDS: METRONIDAZOLE 500mg IVPB 500 MG/100 ML BAG IV SCH (19:35)
[2025-01-11] MEDS: HYDROCODONE/APAP 7.5/325 MG TAB PO PRN (19:40)
--- NOTE | 2025-01-11 20:19 | OP ---
Date of Procedure: 01/11/2025 Surgeon: Piero Andersen MD, Brief Hpi: The patient is a 54-year-old man who presented in the past with perforated sigmoid colon. He ultimately had a Norma's procedure performed at that time with colostomy creation. Ultimatel y, he had a colonoscopy performed, which showed he was a good surgical candidate for reanastomosis. He ultimately was deemed appropriate for reanastomosis and presents for laparoscopic partial colectom y and takedown of colostomy. Preoperative Diagnosis: History of perforated colon with colostomy creation. Postoperative Diagnosis: History of perforated colon with colostomy creation. Procedure Performed: 1. Laparoscopic partial colectomy with colostomy reversal. 2. Laparoscopic splenic flexure mobilization. 3. Laparoscopic adhesiolysis greater than 2 hours. Anesthesia: General endotracheal plus local 1% lidocaine. Estimated Blood Loss: 150 mL. Specimens: Rectosigmoid colon and partial left colon. Findings: Dense adhesions present throughout the abdomen from small bowel to anterior abdominal wall , rectosigmoid colon was densely adhered to the left lateral abdominal wall. Additionally, there wer e dense adhesions of the left colon to the left lateral abdominal wall and to the cynthia-splenic space with significant adhesions to the spleen and the splenic capsule. Anesthesia: General endotracheal. Complications: None. Disposition: The patient was transferred to the recovery room in good condition. Procedure In Detail: After informed consent was obtained, the patient was brought to the operating r oom. The patient was prepped and draped in usual sterile fashion and remained in lithotomy position. At this point, I placed a 12 mm 0-degree optical trocar into the abdomen at the supraumbilical posi tion under direct vision without incident or complication. Insufflation was obtained to 12 mmHg at t his time. There was no injury to vital structure upon entry into the abdomen. A total of 4 trocars were placed, 1 was in the left lower quadrant, which was a 12 mm trocar placed under direct vision wi thout incident or complication, a 5 mm trocar placed in the right upper quadrant without incident or complication and another 12 mm trocar placed was in the left lower quadrant and the colostomy was pro tected throughout. At this point, I proceeded to perform an extensive adhesiolysis mobilizing signif icant scar tissue from the residual rectosigmoid colon. I did leave previous marking sutures of Prol jony on the lateral and medial aspect of the previous rectosigmoid resection site. As such, I used th is as a guide to help direct mobilization and freeing up of the significant scar tissue and mobilizat ion of the rectosigmoid colon. At this point, I began to mobilize the left colon to the colostomy si te. At this point, I took down multiple loops of small bowel, which were firmly adhered to the anter ior bowel wall using blunt and sharp dissection along with the LigaSure. I additionally performed a splenic mobilization coming from lateral to medial. The patient did have significant dense adhesions near the splenic capsule with an accessory vessel feeding portion of the spleen. However, the colon was firmly attached to this portion near the splenic flexure and a cleavage plane could not be seen and as such I ligated this vessel using the LigaSure device without incident or complication with no blood loss. This allowed for better mobilization of the colon. I took the residual scar tissue down and mobilized the colon completely freeing it off the lateral abdominal wall. Elevating it, I did s pare the superior mesenteric vein. It was providing some tether to the area, but it did not preclude a tension-free anastomosis and I opted to spare it at this point. The mobilization moved from later al to medial. After mobilizing the transverse colon, the colon easily fell down into the pelvis at t his point without tension and there was a fairly long rectal stump as well. At this point, I inspect ed the area. There were no ischemic changes to the bowel. I then proceeded to mobilize the colostom y site using electrocautery circumferentially around to dunk the end of the tissue circumferentially around. remained in place to keep the colon closed in its entirety. After I removed the skin ellipse as well as fascia, I the colostomy from the rectus muscle and the various plan es. The colon was then delivered into the surgical field and a sterile field was created. The abdom en was desufflated at this point obviously. I then proceeded to resect the end of this colostomy usi ng a TA-60 blue load. I then proceeded to transect this portion of the specimen and sent it off for pathologic examination as a portion of the left colon. I then placed the sizer in the anus and found that a 23 sizer is the only appropriate size as the patient had an exceedingly small colon where 23 could barely fit. As such, I opted for a 23 anvil and a powered EEA 23 stapler. I then placed the l ubricated anvil into the lumen of the descending colon at this point and secured it with a pursestrin g device. I then secured this after appropriately skeletonizing the structures allowing for an appro priate landing zone of the bowel without any mesentery over the top to allow for an appropriate amber ng. The colon was then dunked back into the abdomen at this point, after being cleansed and I placed a GelPort over the David retractor. The eye was reinflated at this point. I proceeded to bring En do-MICHELLE 60 purple load across the rectosigmoid portion of the colon and I fired this as it was mobiliz ed previously across the appropriate segment of colon to allow for a good healthy anastomosis. At th is point, this portion of the distal rectosigmoid colon was removed as well through the wound protect or site and sent off for pathologic examination as rectosigmoid specimen. At this point, the anal si zer was brought in and 23 was found to be appropriate. Insufflation was obtained at this point, once again it was 12 mmHg. The patient was positioned in the head down, right tilt position and the anvi l dropped into the pelvis at this point without tension. My yard assistant proceeded to place the EEA sta pler, which was a purple load powered stapler into the anus at this point and brought it out under di rect vision under my guidance laparoscopically to the appropriate position. A end-to-side anastomosi s was planned at this point through the sidewall of the rectum. The spike was then deployed at this point in its entirety under my guidance for an end-to-side type anastomosis. At this point, the anvi l was connected and clicked appropriately. It was then brought into medium level tension. I inspect ed the tenia to ensure that the colon ran down without twisting or turning all the way down to the an astomotic site. At this point, the EEA stapler was fired with good function. The EEA stapler was th en guided out appropriately and I then placed the irrigation device into the pelvis and irrigated the area copiously and then suctioned it out. I re-irrigated clean saline at this point. I occluded th e descending colon and my yard assistant placed a proctoscope into the anus and inflated the area. Leak t est showed no evidence of bubbles or leaking at this point under a good amount of distention. At thi s point, I opened the clamp and allowed the air to pass, which passed quite easily. At this point, t he proctoscope was removed and the colon was partially decompressed through the anus. At this point, I then proceeded to place the patient back in neutral position. I grabbed the omentum and placed it around the anastomosis and ultimately returned the small bowel to the normal anatomic position circu mferentially around the area. At this point, I irrigated the area once again and suctioned out compl etely dry. The anastomosis appeared perfect at this point without any evidence of issues. I then crabtree cked out the remaining effluent and proceeded to close all 12 mm trocar sites using a [place] suture passer with an 0 Vicryl interrupted fashion with good approximation of tissues. At this poin t, I removed the David retractor and desufflation was obtained. The remaining trocars were removed at this point. I then copiously irrigated all incisions and closed the colostomy site after grasping the fascial edges with Daniel clamps and closing it en bloc under vision with a #1 running Vicryl crabtree ture. At this point, the area was copiously irrigated once again and closed with a deep dermal inter rupted 3-0 Vicryl suture and francheska were used to close the site. At this point, I proceeded to clos e the remaining trocar sites using interrupted francheska after appropriately irrigating these and a han rile dressing placed over top. The patient tolerated the procedure without incident or complication, transferred to PACU in good condition. All counts were correct at the end of the case. EBONI/MAGDAL Voice ID: [id number] Report ID: [id number]
[2025-01-11] MEDS: CIPROFLOXACIN 400mg IV 400 MG/200 ML BAG IV SCH (20:50)
[2025-01-12] MEDS: HYDROMORPHONE HCL 1 MG/ML INJ IV PRN (00:21)
[2025-01-12 04:54] LABS: Absolute Lymphocytes (CBC) 0.4 K/uL (0.7-4.9); Anion Gap 5.7 mEq/L (5.0-15.0); BUN Blood Urea Nitrogen 15.0 mg/dL (7-18); Glucose Level 178.0 mg/dL (74-106); Hematocrit 37.7 % (39.6-49.0); Hemoglobin 12.9 g/dL (13.6-17.9); MCH 31.5 pg (27.0-35.0); MCHC 34.3 g/dL (32.0-36.0); MCV 91.8 fL (80-100); MPV 9.0 fL (7.6-11.3); Magnesium 1.9 mg/dL (1.6-2.4); Nucleated RBC Absolute Count 0.0 (0-0); Nucleated Red Blood Cells % 0.0 % (0-0); Potassium 4.7 mEq/L (3.5-5.1); RBC Red Blood Cell Count 4.11 M/uL (4.33-5.43); White Blood Count 12.30 thou/uL (4.3-10.9)
[2025-01-12 08:49] LABS: Differential Total Cells Count 100; Segmented Neutrophils 94 % (40-80)
[2025-01-12 08:50] LABS: Blood Morphology Comment NOT SEEN (NOT SEEN)
--- NOTE | 2025-01-12 16:47 | RAD REPORT ---
Procedure: Chest Single View HISTORY: Chest pain COMPARISON: none FINDINGS: Left basilar lung opacities No significant pleural effusion noted. The heart is mildly enlarged. Pneumoperitoneum is present. IMPRESSION: Pneumoperitoneum is present. The patient is status post recent abdominal surgery. Left basilar opacity could represent atelectasis or pneumonia
[2025-01-12] MEDS: ENOXAPARIN 40 MG/0.4 ML SQ SCH (17:24)
--- NOTE | 2025-01-12 17:32 | P.CNS ---
Date of Consult: 01/12/25 Reason for Consult: shortness of breath, pain, medical management Requesting Physician: Piero Andersen Chief Complaint: shortness of breath, pain History of Present Illness: 54yo M, h/o BPH, diverticulitis, ostomy, now s/p ostomy reversal yesterday. He reports he has been doing well post-operatively, but developed some shortness of breath this afternoon. He feels he can't take a deep breath, has pain on bilateral flanks and abdomen when taking a deep breath. Oxygen saturation has been fine. vitals ok. He has not had return of bowel function yet. He ate some pudding this afternoon and shortly after is when he felt his breathing got worse. Otherwise denies any fevers, no new cough, no bleeding, no new /worsening symptoms. Allergies No Known Allergies Allergy (Verified 01/07/25 14:19) Home Medications: Finasteride 5 mg PO BEDTIME 09/12/24 Tamsulosin HCl [Flomax] 0.4 mg PO DAILY 09/12/24 - Past Medical/Surgical History Diabetic: No -: diverticulitis -: sciatica -: ostomy creation and now takedown Psychosocial/ Personal History: Lives at home with family - Family History Mother Medical History: Cancer Father Medical History: Cancer Brother Medical History: Other (see notes) Notes: brain aneurysm - Social History Alcohol use: No CD- Drugs: No Caffeine use: Yes Place of Residence: Home Review of Systems 10-point ROS is otherwise unremarkable Physical Examination Temp Pulse Resp BP Pulse Ox 97.4 F 46 L 16 106/63 96 01/12/25 16:00 01/12/25 16:00 01/12/25 16:00 01/12/25 16:00 01/12/25 16:00 General: Alert, In no apparent distress, Oriented x3 HEENT: EOMI, Sclerae nonicteric Neck: Supple, No LAD Respiratory: Clear to auscultation bilaterally, Diminished (at bases bilaterally) Cardiovascular: No edema, Regular rate/rhythm Gastrointestinal: Other (hypoactive bowel sounds, mild distention, but soft), Tenderness Musculoskeletal: No swelling, No contractures Integumentary: No breakdown, No tenderness/swelling Neurological: Normal speech, Normal affect Laboratory Data (last 24 hrs) 01/12/25 01/12/25 04:05 04:05 WBC 12.30 H Hgb 12.9 L Hct 37.7 L Plt Count 205 Sodium 137 Potassium 4.7 BUN 15 Creatinine 1.12 Glucose 178 H Phosphorus 2.0 L Magnesium 1.9 Physician Review Additional Text: Problem List Breathing difficulty s/p laparoscopic partial colectomy with colostomy reversal BPH slight abd distention. vitals ok - no hypoxia on room air, no tachycardia, unlikely PE also with R shoulder discomfort. seems more consistent with effect from CO2 / insufflation and no return of bowel function yet CXR notes air in abdomen as expected after surgery, and some atelectasis will continue to monitor for now start lovenox for DVT prophylaxis this evening encouraged IS and ambulation. Time Spent Managing Pts care (In Minutes): 55
[2025-01-12] MEDS: ONDANSETRON 4 MG/2 ML VIAL IV PRN (17:36)
[2025-01-12] MEDS: FINASTERIDE 5 MG TAB PO SCH (20:42)
[2025-01-12] MEDS: ZOLPIDEM TARTRATE 5 MG TABLET PO PRN (20:42)
[2025-01-12] MEDS: METRONIDAZOLE 500mg IVPB 500 MG/100 ML BAG IV SCH (23:12)
[2025-01-13 05:11] LABS: Absolute Lymphocytes (CBC) 0.6 K/uL (0.7-4.9); Hematocrit 34.1 % (39.6-49.0); Hemoglobin 11.8 g/dL (13.6-17.9); MCH 31.6 pg (27.0-35.0); MCHC 34.5 g/dL (32.0-36.0); MCV 91.6 fL (80-100); MPV 8.5 fL (7.6-11.3); Nucleated RBC Absolute Count 0.0 (0-0); Nucleated Red Blood Cells % 0.0 % (0-0); RBC Red Blood Cell Count 3.72 M/uL (4.33-5.43); White Blood Count 14.60 thou/uL (4.3-10.9)
[2025-01-13 05:28] LABS: Anion Gap 6.5 mEq/L (5.0-15.0); BUN Blood Urea Nitrogen 12.0 mg/dL (7-18); Glucose Level 144.0 mg/dL (74-106); Magnesium 2.2 mg/dL (1.6-2.4); Potassium 4.5 mEq/L (3.5-5.1)
[2025-01-13] MEDS: TAMSULOSIN 0.4 MG SR CAP PO SCH (09:45)
--- NOTE | 2025-01-13 12:00 | P.PN ---
Date of Service: 01/13/25 Subjective: doing well breathing more comfortably deeper breath no new/worsening no flatus, no BM Physical Exam: GEN: Alert, oriented, NAD CV: Regular rate and rhythm, no edema Pulm: Nonlabored respirations on room air, clear bilaterally ABD: soft, hypoactive bowel sounds, tenderness Neuro: Normal speech, normal affect Problem List: Breathing difficulty s/p laparoscopic partial colectomy with colostomy reversal BPH Vitals stable. No hypoxia or tachycardia improving, less R shoulder discomfort, less abd/flank discomfort breathing deeper CXR notes air in abdomen as expected after surgery, and some atelectasis will continue to monitor for now encouraged IS and ambulation. on room air VTE: Lovenox Code: Full Dispo: Home, per surgery Time Spent Managing Pts Care (In Minutes): 35
--- NOTE | 2025-01-13 12:56 | P.PN ---
Subjective Date of Service: 01/12/25 Chief Complaint: s/p Partial Colectomy and Colostomy Reversal Subjective: Improving (Patient states he feels generally well and only has some pain in his shoulder areas originally bilaterally now only in the right shoulder area.) Physical Examination - Vital Signs Temperature: 97.8 F Blood Pressure: 119/67 Pulse: 48 Respirations: 16 Pulse Ox (%): 96 - Physical Exam General: Alert, In no apparent distress, Oriented x3, Cooperative Neck: Supple Respiratory: Clear to auscultation bilaterally, Diminished Cardiovascular: Regular rate/rhythm Gastrointestinal: Other (Soft mild appropriate tenderness to palpation nondistended no rebound no peritonitis incisions are clean with francheska in place abdominal binder in place.) Musculoskeletal: No clubbing, No swelling, No tenderness, No warmth Integumentary: No rashes, No breakdown, No significant lesion, No tenderness/swelling, No erythema, No warmth, No cyanosis Neurological: Normal gait, Normal speech - Studies Laboratory Data (last 24 hrs) 01/13/25 01/13/25 04:52 04:52 WBC 14.60 H Hgb 11.8 L D Hct 34.1 L Plt Count 168 Sodium 137 Potassium 4.5 BUN 12 Creatinine 1.08 Glucose 144 H Phosphorus 1.7 L Magnesium 2.2 Assessment And Plan - Plan Patient is a 54-year-old male status post partial colectomy and left colostomy reversal with primary anastomosis on 01/11/2025. gen/ neuro: Continue current pain medication regimen. Will encourage p.o. and attempt to wean IV as tolerated. CVS: Continue current treatment Pulm: Continue incentive spirometry with a goal of 15 cc per cake based on ideal body weight. Consult RT's for respiratory treatment. Ambulate with assist, cough and deep breathing reviewed. GI: Serial abdominal exams, change dressings in 48 hours continue abdominal binder 03/02 except when patient in the shower. Await bowel function FEN: Continue IV fluid hydration with current regimen, electrolyte replacement protocol. Continue Phos as well as potassium replacement, magnesium replacement as well., Nutrition to continue p.o. with clear liquid diet at this time will advance based on GI function. ID: Continue antibiotic coverage at this time as patient has slight elevation in of his leukocytosis/and had a prolonged surgery. Renal : Urine output adequate. Prophyalxis: Okay to start Lovenox at 24 hours after surgery based on 40 mg subcu daily. SCDs to Brovana placed. Ambulate with assist. Incentive spirometry continue. Endo: Continue Accu-Cheks every 6 if patient has hyperglycemia or hypoglycemia we will initiate insulin replacement protocol. PT: Ambulate with assist as tolerated.
--- NOTE | 2025-01-13 13:01 | P.PN ---
Subjective Date of Service: 01/13/25 Chief Complaint: s/p Partial Colectomy and Colostomy Reversal Subjective: Improving (Patient has less pain today as compared with yesterday but did have some difficulty taking deep breaths yesterday initially chest x-ray was performed.) Physical Examination - Vital Signs Temperature: 97.8 F Blood Pressure: 119/67 Pulse: 48 Respirations: 16 Pulse Ox (%): 96 - Physical Exam General: Alert, In no apparent distress, Oriented x3, Cooperative HEENT: Mucous membr. moist/pink Neck: Supple Respiratory: Clear to auscultation bilaterally, Normal air movement, Diminished Cardiovascular: Regular rate/rhythm Gastrointestinal: Other (Soft, mild appropriate tenderness to palpation no rebound no guarding no focal peritonitis, abdomen remains flat almost scaphoid. Abdominal binder in place removed and examined incisions are all clean at this point. Bowel sounds are hypoactive. Abdomen has some tympany. Similar to previous exam.) Musculoskeletal: No clubbing, No swelling, No contractures, No erythema, No tenderness, No warmth Integumentary: No rashes, No breakdown, No significant lesion, No tenderness/swelling, No erythema, No warmth, No cyanosis Neurological: Normal gait, Normal speech - Studies Laboratory Data (last 24 hrs) 01/13/25 01/13/25 04:52 04:52 WBC 14.60 H Hgb 11.8 L D Hct 34.1 L Plt Count 168 Sodium 137 Potassium 4.5 BUN 12 Creatinine 1.08 Glucose 144 H Phosphorus 1.7 L Magnesium 2.2 Assessment And Plan - Plan Patient is a 54-year-old male status post partial colectomy and left colostomy reversal with primary anastomosis on 01/11/2025. gen/ neuro: Continue current pain medication regimen. Will encourage p.o. and attempt to wean IV as tolerated. CVS: Continue current treatment Pulm: Continue incentive spirometry with a goal of 15 cc per cake based on ideal body weight. Consult RT's for respiratory treatment. Ambulate with assist, cough and deep breathing reviewed. GI: Serial abdominal exams, change dressings in 48 hours continue abdominal binder 03/02 except when patient in the shower. Await bowel function FEN: Continue IV fluid hydration with current regimen, electrolyte replacement protocol. Continue Phos as well as potassium replacement, magnesium replacement as well., Nutrition to continue p.o. with clear liquid diet at this time will advance based on GI function. ID: Continue antibiotic coverage at this time as patient has slight elevation in of his leukocytosis/and had a prolonged surgery. Renal : Urine output adequate. Prophyalxis: Okay to start Lovenox at 24 hours after surgery based on 40 mg subcu daily. SCDs to Brovana placed. Ambulate with assist. Incentive spirometry continue. Endo: Continue Accu-Cheks every 6 if patient has hyperglycemia or hypoglycemia we will initiate insulin replacement protocol. PT: Ambulate with assist as tolerated. -Hospitalist consulted, chest x-ray reviewed
[2025-01-14 05:47] LABS: Absolute Lymphocytes (CBC) 1.0 K/uL (0.7-4.9); Hematocrit 33.8 % (39.6-49.0); Hemoglobin 11.7 g/dL (13.6-17.9); MCH 31.9 pg (27.0-35.0); MCHC 34.7 g/dL (32.0-36.0); MCV 92.0 fL (80-100); MPV 9.2 fL (7.6-11.3); Nucleated RBC Absolute Count 0.0 (0-0); Nucleated Red Blood Cells % 0.0 % (0-0); RBC Red Blood Cell Count 3.67 M/uL (4.33-5.43); White Blood Count 10.00 thou/uL (4.3-10.9)
[2025-01-14 06:28] LABS: Anion Gap 5.2 mEq/L (5.0-15.0); BUN Blood Urea Nitrogen 12.0 mg/dL (7-18); Glucose Level 115.0 mg/dL (74-106); Magnesium 2.1 mg/dL (1.6-2.4); Potassium 4.2 mEq/L (3.5-5.1)
--- NOTE | 2025-01-14 11:31 | P.PN ---
Date of Service: 01/14/25 Subjective: breathing more comfortably on RA; SPO2 > 95 ambulating passing flatuss Physical Exam: GEN: Alert, oriented, NAD CV: Regular rate and rhythm, no edema Pulm: Nonlabored respirations on room air, clear bilaterally ABD: soft, hypoactive bowel sounds, tenderness; abdominal binder Neuro: Normal speech, normal affect Problem List: Breathing difficulty s/p laparoscopic partial colectomy with colostomy reversal BPH Vitals stable. No hypoxia or tachycardia improving, less R shoulder discomfort, less abd/flank discomfort breathing deeper CXR notes air in abdomen as expected after surgery, and some atelectasis will continue to monitor for now encouraged IS and ambulation. Continue IV fluids, pain control Continue Cipro/flagyl (01/13-) per surgery Leukocytosis resolved breathing more comfortably on RA; SPO2 > 95 VTE: resume Lovenox Code: Full Dispo: Home, per surgery Time Spent Managing Pts Care (In Minutes): 26
[2025-01-15 05:47] LABS: Absolute Lymphocytes (CBC) 1.4 K/uL (0.7-4.9); Hematocrit 35.2 % (39.6-49.0); Hemoglobin 12.2 g/dL (13.6-17.9); MCH 31.6 pg (27.0-35.0); MCHC 34.6 g/dL (32.0-36.0); MCV 91.2 fL (80-100); MPV 8.7 fL (7.6-11.3); Nucleated RBC Absolute Count 0.0 (0-0); Nucleated Red Blood Cells % 0.1 % (0-0); RBC Red Blood Cell Count 3.86 M/uL (4.33-5.43); White Blood Count 6.70 thou/uL (4.3-10.9)
[2025-01-15 06:07] LABS: Anion Gap 6.8 mEq/L (5.0-15.0); BUN Blood Urea Nitrogen 9.0 mg/dL (7-18); Glucose Level 112.0 mg/dL (74-106); Magnesium 1.9 mg/dL (1.6-2.4); Potassium 3.8 mEq/L (3.5-5.1)
[2025-01-15] MEDS: PANTOPRAZOLE 40MG TABLET PO ONE (11:19)
[2025-01-15] MEDS: D5.45NS W/KCL 20MEQ 1,000 ML IV SCH (11:19)
--- NOTE | 2025-01-15 11:30 | P.PN ---
Date of Service: 01/15/25 Subjective: breathing ok voiding without issues +nausea, +flatus, no BM breathing okay on room air Physical Exam: GEN: Alert, oriented, NAD CV: Regular rate and rhythm, no edema Pulm: Nonlabored respirations on room air, clear bilaterally Problem List: Breathing difficulty s/p laparoscopic partial colectomy with colostomy reversal BPH Vitals stable. No hypoxia or tachycardia improving. breathing deeper, less R shoulder discomfort, less abd/flank discomfort CXR notes air in abdomen as expected after surgery, and some atelectasis encouraged IS and ambulation. Continue Cipro/flagyl (01/13-) per surgery Leukocytosis resolved breathing comfortably on RA; SPO2 > 95 IVF decreased 01/15 Continue home flomax, proscar VTE: Lovenox Code: Full Dispo: Home, per surgery Time Spent Managing Pts Care (In Minutes): 26
[2025-01-15] MEDS: PROMETHAZINE INJ 25 MG/ML AMP IM ONE (21:06)
[2025-01-15 23:26] VITALS: BMI 21.9
[2025-01-16 05:46] LABS: Absolute Lymphocytes (CBC) 1.8 K/uL (0.7-4.9); Hematocrit 37.8 % (39.6-49.0); Hemoglobin 13.1 g/dL (13.6-17.9); MCH 31.7 pg (27.0-35.0); MCHC 34.6 g/dL (32.0-36.0); MCV 91.5 fL (80-100); MPV 8.9 fL (7.6-11.3); Nucleated RBC Absolute Count 0.0 (0-0); Nucleated Red Blood Cells % 0.0 % (0-0); RBC Red Blood Cell Count 4.13 M/uL (4.33-5.43); White Blood Count 6.30 thou/uL (4.3-10.9)
[2025-01-16 05:59] LABS: Anion Gap 4.9 mEq/L (5.0-15.0); BUN Blood Urea Nitrogen 8.0 mg/dL (7-18); Glucose Level 101.0 mg/dL (74-106); Magnesium 2.0 mg/dL (1.6-2.4); Potassium 3.9 mEq/L (3.5-5.1)
[2025-01-16] MEDS: PROMETHAZINE 25 MG TABLET PO ONE (10:25)
[2025-01-16] MEDS ORDERED: ACETAMINOPHEN 500 MG TAB PO PRN (10:34)
[2025-01-16] MEDS ORDERED: MORPHINE 2 MG/ML SYR IV PRN (10:35)
[2025-01-16] MEDS: D5.45NS W/KCL 20MEQ 1,000 ML IV SCH (10:37)
--- NOTE | 2025-01-16 11:46 | P.PN ---
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 persistent, with waves of severity worsened with moving head and sitting/standing up reports better than yesterday nausea worsened with movement breathing comfortably on RA Physical Exam: GEN: Alert, oriented, NAD CV: Regular rate and rhythm, no edema Pulm: Non-labored respirations on room air, clear bilaterally Problem List: Intractable Nausea Breathing difficulty, improved s/p laparoscopic partial colectomy with colostomy reversal BPH nausea/lightheaded since 01/15 in morning suspect hypovolemic / orthostatic component, with flomax/finasteride hold flomax/finasteride give IVF Check orthostatic vitals encouraged IS and ambulation. VTE: Lovenox Code: Full Dispo: Home, per surgery pending BM, nausea improved Time Spent Managing Pts Care (In Minutes): 30
[2025-01-16] MEDS: Ringers Lactate 1,000 ML IV ONE (13:37)
[2025-01-17 05:11] LABS: Absolute Lymphocytes (CBC) 1.4 K/uL (0.7-4.9); Hematocrit 39.3 % (39.6-49.0); Hemoglobin 13.8 g/dL (13.6-17.9); MCH 32.1 pg (27.0-35.0); MCHC 35.2 g/dL (32.0-36.0); MCV 91.4 fL (80-100); MPV 8.7 fL (7.6-11.3); Nucleated RBC Absolute Count 0.0 (0-0); Nucleated Red Blood Cells % 0.0 % (0-0); RBC Red Blood Cell Count 4.30 M/uL (4.33-5.43); White Blood Count 6.50 thou/uL (4.3-10.9)
[2025-01-17 05:41] LABS: Anion Gap 6.9 mEq/L (5.0-15.0); BUN Blood Urea Nitrogen 11.0 mg/dL (7-18); Glucose Level 112.0 mg/dL (74-106); Magnesium 2.0 mg/dL (1.6-2.4); Potassium 3.9 mEq/L (3.5-5.1)
--- NOTE | 2025-01-17 10:20 | RAD REPORT ---
EXAMINATION: CT ABDOMEN AND PELVIS WITH CONTRAST CLINICAL INDICATION: Abdominal pain. Nausea TECHNIQUE: CT abdomen and pelvis was performed, after the administration of 100 cc Isovue-300.. Sagit marlena and coronal reconstructions were obtained. One or more of the following dose reduction techniques were used: Automated exposure control, adjustment of the mA and kV according to patient si ze, and iterative reconstruction. Unless otherwise specified, incidental findings do not require dedicated imaging follow-up. [id number]. Oral contrast was not given which limits evaluation of bowel and appendix. COMPARISON: .None FINDINGS: Several hepatic masses with peripheral nodular enhancement without change from July 2024 probably hemangiomas. 4.3 cm low-density area has developed within the spleen reaching the periphery consistent with infarc tion. The pancreas and adrenals unremarkable. Small renal cysts. Post surgical changes involve the sigmoid colon. A small amount of ascites is present within the pelv is. Small bilateral pleural effusions. Small to moderate amounts of pneumoperitoneum within the abdomen and upper pelvis. Small amount of ill-defined fluid collection within the left anterior abdominal wall above the level of the iliac crests surgical francheska. No extravasation of contrast seen. : IMPRESSION: Small to moderate amount of pneumoperitoneum. The patient is status post abdominal surgery. This coul d be a normal finding or indicate a bowel perforation.
--- NOTE | 2025-01-17 11:34 | P.PN ---
Date of Service: 01/17/25 Subjective: continues with dizziness and nausea, improving last night worsened with oral contrast, better this afternoon breathing okay afebrile urine remains dark yellow/marcus Physical Exam: GEN: Alert, oriented, NAD CV: Regular rate and rhythm, no edema Pulm: Non-labored respirations on room air, clear bilaterally Abd: binder in place, mild discomfort Problem List: Intractable Nausea Breathing difficulty, improved s/p laparoscopic partial colectomy with colostomy reversal BPH nausea/lightheaded since 01/15 in morning suspect hypovolemic / orthostatic component, with flomax/finasteride hold flomax/finasteride Continue IVF orthostatic vitals borderline, urine remains dark, give 500ml bolus encouraged IS and ambulation. CT abdomen showed small-mod pneumoperitoneum, small amount of ascites, small bilateral pleural effusions. Dr. Andersen reviewed CT results. Continue current treatment plan VTE: Lovenox Code: Full Dispo: Home, per surgery pending BM, nausea improved Time Spent Managing Pts Care (In Minutes): 30
[2025-01-17] MEDS: DOCUSATE NA 100 MG CAP PO SCH (11:39)
[2025-01-17] MEDS: Ringers Lactate 500 ML IV ONE (11:41)
--- NOTE | 2025-01-17 13:06 | P.PN ---
Subjective Date of Service: 01/17/25 Chief Complaint: s/p Partial Colectomy and Colostomy Reversal Subjective: Improving (Patient states he is better last night and became completely asymptomatic with respect to his persistent nausea and resolved in the morning however after drinking contrast for a CT scan he developed some nausea but no vomiting. He now feels as if his nausea is almost completely resolved once again) Review of Systems 10-point ROS is otherwise unremarkable Physical Examination - Vital Signs Temperature: 98.0 F Blood Pressure: 122/68 Pulse: 55 Respirations: 15 Pulse Ox (%): 98 - Physical Exam General: In no apparent distress, Oriented x3, Cooperative Respiratory: Clear to auscultation bilaterally, Normal air movement Cardiovascular: Other (Mild bradycardia otherwise normal heart rate in the 50s) Gastrointestinal: Other (Soft mild appropriate tenderness to palpation no rebound no guarding no focal peritonitis nondistended scaphoid abdomen incisions are clean francheska in place bowel sounds normal) Musculoskeletal: No clubbing, No swelling, No contractures, No erythema, No tenderness, No warmth Integumentary: No rashes, No breakdown, No significant lesion Neurological: Normal speech - Studies Laboratory Data (last 24 hrs) 01/17/25 01/17/25 04:36 04:36 WBC 6.50 Hgb 13.8 Hct 39.3 L Plt Count 198 Sodium 137 Potassium 3.9 BUN 11 Creatinine 0.99 Glucose 112 H Phosphorus 3.4 Magnesium 2.0 Assessment And Plan - Plan Patient is a 54-year-old male status post partial colectomy and left colostomy reversal with primary anastomosis on 01/11/2025. gen/ neuro: Continue current pain medication regimen. Will encourage p.o. and attempt to wean IV as tolerated. CVS: Continue current treatment Pulm: Continue incentive spirometry with a goal of 15 cc per cake based on ideal body weight. Consult RT's for respiratory treatment. Ambulate with assist, cough and deep breathing reviewed. GI: Serial abdominal exams, change dressings in 48 hours continue abdominal binder 03/02 except when patient in the shower. Await bowel movement, patient continues to pass gas. He feels more rumbling in his abdomen at this point. Nausea has improved. His nausea has almost completely resolved this point without medication. colace 100 PO BID FEN: Continue IV fluid hydration with current regimen, electrolyte replacement protocol. Continue Phos as well as potassium replacement, magnesium replacement as well., Nutrition to continue p.o. with full liquid diet at this time will advance based on GI function. ID: Continue antibiotic coverage at this time as patient has slight elevation in of his leukocytosis/and had a prolonged surgery. Renal : Urine output adequate. Prophyalxis: Okay to continue Lovenoxafter surgery based on 40 mg subcu daily. SCDs placed. Ambulate with assist. Incentive spirometry continue. Ambulate with assist. Endo: Continue Accu-Cheks every 6 if patient has hyperglycemia or hypoglycemia we will initiate insulin replacement protocol. PT: Ambulate with assist as tolerated. -Hospitalist consulted, chest x-ray reviewed -I have reviewed the CT scan of the abdomen and pelvis with Dr. Kat directly and found that the patient has no evidence of intestinal perforation from the GI tract. He continues to have some free air in the abdomen which is likely postoperatively placed however there is clear fluid in the pelvis consistent with this normal pelvic fluid after surgery. The patient did have irrigation for anastomotic testing and surgery. No evidence infection no evidence of abscess no evidence of intestinal perforation no ischemia anastomosis appears patent. -Patient continues to pass gas.
[2025-01-18 05:25] LABS: Absolute Lymphocytes (CBC) 1.2 K/uL (0.7-4.9); Hematocrit 38.8 % (39.6-49.0); Hemoglobin 13.2 g/dL (13.6-17.9); MCH 31.0 pg (27.0-35.0); MCHC 34.1 g/dL (32.0-36.0); MCV 90.8 fL (80-100); MPV 8.1 fL (7.6-11.3); Nucleated RBC Absolute Count 0.0 (0-0); Nucleated Red Blood Cells % 0.0 % (0-0); RBC Red Blood Cell Count 4.27 M/uL (4.33-5.43); White Blood Count 6.40 thou/uL (4.3-10.9)
[2025-01-18 05:41] LABS: Anion Gap 4.2 mEq/L (5.0-15.0); BUN Blood Urea Nitrogen 11.0 mg/dL (7-18); Glucose Level 113.0 mg/dL (74-106); Magnesium 2.0 mg/dL (1.6-2.4); Potassium 4.2 mEq/L (3.5-5.1)
[2025-01-18 09:28] VITALS: O2SAT 97
--- NOTE | 2025-01-18 09:30 | RAD REPORT ---
EXAM: XR Abdomen 1 View (KUB) HISTORY: [facility] s/p colostomy reversal on 01/11 COMPARISON: 01/17/[address] FINDINGS: Single view of the abdomen shows a nonspecific, nonobstructive bowel gas pattern, apart fro m moderate gaseous distention throughout the mid to distal colon. Enteric contrast seen on prior CT has now progressed to the level of the hepatic flexure and possibly the proximal transverse colon. Grossman rgical francheska along the right and left flanks. No suspicious calcifications are seen. The bones are unremarkable. IMPRESSION: Progression of orally ingested contrast to the level of the hepatic flexure and probably proximal tra nsverse colon. Moderate gaseous distention throughout the mid to distal colon.
[2025-01-18] MEDS: D5.45NS W/KCL 20MEQ 1,000 ML IV SCH (18:29)
[2025-01-19 05:48] LABS: Absolute Lymphocytes (CBC) 1.5 K/uL (0.7-4.9); Hematocrit 40.1 % (39.6-49.0); Hemoglobin 13.8 g/dL (13.6-17.9); MCH 31.2 pg (27.0-35.0); MCHC 34.5 g/dL (32.0-36.0); MCV 90.6 fL (80-100); MPV 8.6 fL (7.6-11.3); Nucleated RBC Absolute Count 0.0 (0-0); Nucleated Red Blood Cells % 0.1 % (0-0); RBC Red Blood Cell Count 4.43 M/uL (4.33-5.43); White Blood Count 7.20 thou/uL (4.3-10.9)
[2025-01-19 05:59] LABS: Anion Gap 4.5 mEq/L (5.0-15.0); BUN Blood Urea Nitrogen 11.0 mg/dL (7-18); Glucose Level 108.0 mg/dL (74-106); Magnesium 2.1 mg/dL (1.6-2.4); Potassium 4.5 mEq/L (3.5-5.1)
[2025-01-19] MEDS: DOCUSATE NA 100 MG CAP PO SCH (09:16)
[2025-01-19 13:05] VITALS: BP 107/62; TEMP 97.9
--- NOTE | 2025-02-08 11:35 | P.DS ---
Admission Date: 01/11/25 Discharge Date: 02/08/25 Disposition: ROUTINE DISCHARGE Discharge Condition: GOOD Reason for Admission: s/p Partial Colectomy and Colostomy Reversal Procedures: Laparoscopic left partial colectomy takedown of colostomy and primary anastomosiscolorectal anastomosis Brief History of Present Illness: Patient is a 54-year-old male with a complex history of diverticulitis on the left side ultimately had a Meneses's procedure and return to my clinic for colostomy reversal. He underwent colonoscopy which did not show significant pathology and he was a good surgical candidate. Hospital Course: Patient understood who underwent a laparoscopic partial colectomy and colostomy takedown with primary colorectal anastomosis. He did well with slow recovery. Patient was quite thin and had significant pneumoperitoneum after the procedure which was incompletely drained he had return of bowel function ultimately after several days was tolerating regular diet having regular bowel movements multiple bowel movements multiple CT showed no evidence of leak or any issues with related to the postsurgical course other than pneumoperitoneum. He continued to improve ambulatory no pain tolerating regular diet regular bowel movements were all noted. Appropriate for discharge. Vital Signs/Physical Exam: Temp Pulse Resp BP Pulse Ox 97.9 F 55 16 107/62 98 01/19/25 12:00 01/19/25 12:00 01/19/25 12:00 01/19/25 12:00 01/19/25 12:00 General: Alert, In no apparent distress, Oriented x3, Cooperative Respiratory: Clear to auscultation bilaterally Cardiovascular: No edema, Normal pulses, Regular rate/rhythm Gastrointestinal: Soft and benign, Non-distended, W/out succussion splash, W/out hepatosplenomegaly, W/out hepatomegaly, W/out splenomegaly, No ascites, No tenderness, No masses, No rebound, No guarding, Other (Well-healed surgical scars noted healing well) Musculoskeletal: No clubbing, No swelling, No contractures, No erythema, No tenderness, No warmth Integumentary: No rashes, No breakdown, No significant lesion, No tenderness/swelling, No erythema, No warmth Neurological: Normal gait, Normal speech, Normal strength at 5/5 x4 extr, Normal tone Laboratory Data at Discharge: WBC 7.20 thou/uL (4.3-10.9) 01/19/25 05:04 Hgb 13.8 g/dL (13.6-17.9) 01/19/25 05:04 Hct 40.1 % (39.6-49.0) 01/19/25 05:04 Plt Count 213 thou/uL (152-406) 01/19/25 05:04 PT 11.8 SECONDS (10-13.0) 01/07/25 14:23 INR 1.04 01/07/25 14:23 APTT 30.9 SECONDS (27.2-37.4) 01/07/25 14:23 Sodium 138 mEq/L (136-145) 01/19/25 05:04 Potassium 4.5 mEq/L (3.5-5.1) 01/19/25 05:04 BUN 11 mg/dL (7-18) 01/19/25 05:04 Creatinine 0.92 mg/dL (0.70-1.30) 01/19/25 05:04 Glucose 108 mg/dL (74-106) H 01/19/25 05:04 Phosphorus 3.4 mg/dL (2.5-4.9) 01/19/25 05:04 Magnesium 2.1 mg/dL (1.6-2.4) 01/19/25 05:04 Home Medications: Finasteride 5 mg PO BEDTIME 09/12/24 Tamsulosin HCl [Flomax] 0.4 mg PO DAILY 09/12/24 Diet: soft Activity: No lifting more than 10 lbs Followup: Piero Andersen MD [ACTIVE - CAN ADMIT] - 1-2 Weeks Clarence Landeros MD [Primary Care Provider] - 1-2 Weeks
== END 2025-01-19 14:45 | disposition home or self-care (01) | DRG 330 ==
LOC: OR 10:34 → 2ND 17:10 → UNDOADMIN 17:29 → 2ND 17:29
PROVIDERS: ADMIT Surgery; ATTEND Surgery
PROC: 0DNN4ZZ Release Sigmoid Colon, Percutaneous Endoscopic Approach (ICD-10-PCS; 2025-01-11)
PROC: 0DBN4ZZ Excision of Sigmoid Colon, Percutaneous Endoscopic Approach (ICD-10-PCS; principal; 2025-01-11 12:30)
DX: K66.0 Peritoneal adhesions (postprocedural) (postinfection) (principal); K57.92 Diverticulitis of intestine, part unspecified, without perforation or abscess without bleeding; N40.0 Benign prostatic hyperplasia without lower urinary tract symptoms; Z93.3 Colostomy status
CPT/HCPCS: 36415; 71045; 74018; 74177; 80048; 82947; 83735; 84100; 85025; 85610; 85730; 86850; 86900; 86901; 88304; 88305; 88307; 94010; 94760; 97161; J0330; J0744; J1100; J1171; J1650; J2003; J2250; J2405; J2550; J2704; J3010; J7120; Q0169; Q9967